=== PATIENT | female | born 1970 | race Caucasian/White ===

== ENCOUNTER 2023-10-21 11:01 | Outpatient (OUT) | payer BC, SELFPAY ==
--- NOTE | 2023-10-21 | US_ITS ---
[facility] [place] [id number] Patient Name: CLEMENCIA BROWN MRN: [id number] date: 1970 Sex: F Assigned Patient Location: [facility] Current Patient Location: [facility] Accession/Order Number: [id number] Exam Date: 10/21/2023 11:29 Report Date: 10/21/2023 12:28 At the request of: RADHA THORNTON Procedure: US pelvis transvaginal EXAMINATION: US pelvis transvaginal HISTORY: PCOS, IRREGULAR PERIODS, FAMILY HISTORY OF OVARIAN CANCER COMPARISON: No relevant comparison available. FINDINGS: The uterus is prominent in size, lobular in contour and heterogeneous in echotexture measuring 12.3 x 5.8 x 7.4 cm. Anteverted, anteflexed The endometrium measures 1.2 cm. There is a small amount of fluid in the lower uterine segment/endocervical canal which is dilated up to 4 mm The right ovary measures 2.9 x 2.1 x 2.7 cm. 2 cystic areas with low-level echoes measuring up to 1.5 cm. The left ovary measures 2.9 x 2.3 x 3.1 cm. Cystic area measuring 1.5 cm with low-level echoes. US/US pelvis transvaginal IMPRESSION: Bilateral ovarian cystic lesions measuring up to 1.5 cm. Complex cysts are favored Enlarged heterogeneous uterus with no focal masses. Electronically authenticated by: CORAZON ROUSSEAU Date: 10/21/2023 12:28
--- NOTE | 2023-10-21 11:00 | US_ITS ---
[facility] [place] [id number] Patient Name: CLEMENCIA BROWN MRN: [id number] date: 1970 Sex: F Assigned Patient Location: [facility] Current Patient Location: [facility] Accession/Order Number: [id number] Exam Date: 10/21/2023 11:29 Report Date: 10/21/2023 12:28 At the request of: RADHA THORNTON Procedure: US pelvis w/ transvaginal EXAMINATION: US pelvis transvaginal HISTORY: PCOS, IRREGULAR PERIODS, FAMILY HISTORY OF OVARIAN CANCER COMPARISON: No relevant comparison available. FINDINGS: The uterus is prominent in size, lobular in contour and heterogeneous in echotexture measuring 12.3 x 5.8 x 7.4 cm. Anteverted, anteflexed The endometrium measures 1.2 cm. There is a small amount of fluid in the lower uterine segment/endocervical canal which is dilated up to 4 mm The right ovary measures 2.9 x 2.1 x 2.7 cm. 2 cystic areas with low-level echoes measuring up to 1.5 cm. The left ovary measures 2.9 x 2.3 x 3.1 cm. Cystic area measuring 1.5 cm with low-level echoes. US/US pelvis w/ transvaginal IMPRESSION: Bilateral ovarian cystic lesions measuring up to 1.5 cm. Complex cysts are favored Enlarged heterogeneous uterus with no focal masses. Electronically authenticated by: CORAZON ROUSSEAU Date: 10/21/2023 12:28
== END 2023-10-21 11:02 | disposition home or self-care (01) ==
LOC: NOMS 11:28
PROVIDERS: PCP Family Medicine; Visit Provider Obstetrics & Gynecology
DX: E28.2 Polycystic ovarian syndrome (principal); N92.6 Irregular menstruation, unspecified; Z80.41 Family history of malignant neoplasm of ovary
CPT/HCPCS: 76830; 76856

== ENCOUNTER 2023-12-24 07:58 | Outpatient (OUT) | payer BC, SELFPAY ==
--- NOTE | 2023-12-24 08:00 | ECG_ITS ---
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
== END 2023-12-24 07:59 | disposition home or self-care (01) ==
LOC: PST 07:59
PROVIDERS: PCP Family Medicine; Visit Provider Obstetrics & Gynecology
DX: Z01.810 Encounter for preprocedural cardiovascular examination (principal); N92.6 Irregular menstruation, unspecified; N85.2 Hypertrophy of uterus; R10.2 Pelvic and perineal pain
CPT/HCPCS: 93005

== ENCOUNTER 2023-12-27 07:15 | Day surgery (SDC) | payer BC, SELFPAY ==
[2023-12-24 08:39] VITALS: BP 106/68; PULSE 55; TEMP 36.3; O2SAT 99; BMI 22.4
[2023-12-27] VITALS (10 sets, daily range): BP systolic 93–116; BP diastolic 57–81; PULSE 52–69; TEMP 36.3–36.4; O2SAT 96–100; BMI 22.4
--- OUTSIDE RECORDS SUMMARY | 2023-12-27 07:18 | XMS_ITS | CCD ---
Author Organization [facility] Care Team Providers Care Appointment Coordinator Name Role Phone DO Salas Page Primary Care Provider DO Colin Isidro Attending Provider DO Salas Page Primary Care Provider DO Corby Jauregui Attending Provider [phone] RADHA THORNTON Attending Unavailable RADHA THORNTON Attending Unavailable CORBY JAUREGUI Attending Unavailable ALEXANDRE VALDIVIA Attending Unavailable ALEXANDRE VALDIVIA Attending Unavailable Corby Jauregui Admitting Unavailable Corby Jauregui Attending Unavailable Salas Page Primary Care Unavailable Alexandre Valdivia Attending Unavailable Salas Page Primary Care Unavailable Alexandre Valdivia Admitting Unavailable Colin Isidro Admitting Unavailable Colin Isidro Attending Unavailable Salas Page Primary Care Unavailable Allergies Allergy Classification Reported Allergen(s) Allergy Type Date of Onset Reaction(s) Facility (2 sources) Penicillins; Translations: [Penicillins] Allergy to substance 06-11-2018 [facility] Problems Problem Classification Problem Date Documented Da te Episodic/Chronic Abdominal pain (2 sources) Left upper quadrant pain; Translations: [Left upper quadrant pain] 06-12-2018 Episodic Nonmalignant breast conditions (2 sources) Unspecified lump in the right breast, lower outer quadrant; Translations: [Unspecified lump in the right breast, unspecified quadrant] Onset: 12-12-2023 Episodic Other screening for suspected conditions (not mental disorders or infectious disease) (2 sources) Computed tomography result abnormal; Translations: [Abnormal findings on diagnostic imaging of other specified body structures] 06-12-2018 Chronic Unclassified (1 source) Encounter for screening mammogram for malignant neoplasm of breast; Translations: [Encounter for screening mammogram for malignant neoplasm of breast] Onset: 12-28-2022 Results Test Name Value Interpretation Reference Range Aleta Mireles 12-17-2023 L Specimen: [id number] Received: 12/17/23 Status: CATE Garcia Num: [id number] Spec Type: Surgical Subm Dr: Stephen Shelton Jr, DO Tissues: A BREAST CORE NO CALCS (RT BREAST TISSUE) Procedures: HE/4, Gross/Micro L4 Age/ Patient Sex Location Account Attending Physician Ayana Brown 53/F WIUL [id number] Alexandre Valdivia DO SPEC NUM: [id number] RECD: 12/17/23 STATUS: CATE GARCIA NUM: [id number] MICHAEL: 12/17/[address]: Stephen Shelton Jr, DO ENTERED: 12/17/23 [facility] DR: Alexandre Valdivia DO SPEC TYPE: Surgical DEPT: S ORDERED: HE/4, Gross/Micro L4 ORDERED: HE/4, Gross/Micro L4 Pathological Diagnosis Right breast mass at 6?7:00 (4 cm from nipple), ultrasound?guided core biopsy: ? 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 ? No in situ or invasive carcinoma. Note: The tumor measures at least 17 mm in maximal linear extent. There is a mixture of intracanalicular and pericanalicular architectural patterns. In some areas there is slight accentuation of stromal cellularity adjacent to hyperplastic ducts. Significant stromal cell atypia, mitotic activity or stromal overgrowth are not identified. Foci of atypical ductal hyperplasia or in situ lobular neoplasia are not identified. Possibilities include both a fibroadenoma and benign benign phyllodes tumor. Gross Description Received in formalin, labeled with the patient's name, date of and right breast 6?7:00 4 cm FN are 6 fibrofatty tissue cores ranging from 1.7 cm to 1.3 cm in length by 0.1 cm in diameter, entirely submitted in A1?A2. Time of collection: 12/17/2023 at 1120 Time in formalin: 12/17/2023 at 1125 Time at gross: 12/17/2023 at 1441 Clinical history: Right breast lesion ---- Specimen: [id number] Received: 12/17/23 Status: CATE Garcia Num: [id number] Spec Type: Surgical Subm Dr: Stephen Shelton Jr, DO Tissues: A BREAST CORE NO CALCS (RT BREAST TISSUE) Procedures: Nneka/Baylee L4 ---- Patient: Ayana Brown [id number] (Continued) ---- Specimen: [id number] Received: 12/17/23 (Continued) Signed (signature on file) Rickie Watson MD 12/18/23 1329 ---- Specimen: Received: 12/17/23 Status: CATE Garcia Num: [id number] Spec Type: Surgical Subm Dr: Stephen Shelton Jr, DO Tissues: A BREAST CORE NO CALCS (RT BREAST TISSUE) Procedures: /, Gross/Micro L4 ---- Patient: Ayana Brown [id number] (Continued) ---- Specimen: Received: 12/17/23 (Continued) CPT Codes 17369 ---- ---- Specimen: [id number] Received: 12/17/23 Status: CATE Garcia Num: [id number] Spec Type: Surgical Subm Dr: Stephen Shelton Jr, DO Tissues: A BREAST CORE NO CALCS (RT BREAST TISSUE) Procedures: HE/Marixa, Gross/Micro L4 ---- Patient: Ayana Brown [id number] (Continued) ---- Signed (signature on file) Rickie Watson MD 12/18/23 1329 Normal [facility] US breast ndl core biopsy RT on 12-17-2023 breast ndl core biopsy RT [facility] [address] Mammography Report Signed with Ramy Patient: Ayana Brown MR#: [id number] [id number] : 1970 Acct:[id number] Age/Sex: 53 / F ADM Date: 12/17/23 Loc: 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 Possibilities include fibroadenoma and phyllodes tumor. Negative for in situ or invasive carcinoma. Findings are benign and concordant with imaging. Surgical excision should be contemplated. If no intervention is performed, diagnostic right breast mammogram and ultrasound in 6 months is recommended. Impression dictated by: Stephen Shelton Jr., D.O.12/19/2023 9:31 AM Dictation Location: [place] [address] Addendum Dictated By: Stephen Shelton Jr, DO Addendum Signed By: 12/19/23930 Addendum Cosigned By: DD/ /12/927 TD/TT: 12/19/2310/12/930 ULTRASOUND GUIDED VACUUM-ASSISTED HOLOGIC ATEC SYSTEM CORE BIOPSIES OF THE RIGHT BREAST: CLINICAL DATA: Mass 6:30 position right breast PROCEDURE: The risks, benefits and alternatives to an ultrasound guided vacuum-assisted Hologic ATEC system core biopsy procedure were discussed with the patient and written informed consent was obtained. Ultrasonographic survey of the 6:30 position of the right breast was performed by pharmacy technologist . The patient's overlying skin was anesthetized with 1% lidocaine. The deeper soft tissues up to and around the mass were anesthetized with lidocaine mixed with epinephrine. Following this, multiple core biopsies of the right breast mass were performed using a 12-gauge Twirl TV vacuum-assisted core biopsy needle under ultrasound guidance. Multiple core biopsy specimens were obtained. A metallic post biopsy marker was then placed. Post procedure mammograms were performed. The patient tolerated the procedure well without immediate postprocedural complication. POSTPROCEDURE MAMMOGRAMS: Craniocaudal and true lateral views of the right breast were performed using low dose digital technique. The postbiopsy marker is seen at the biopsy site without evidence of migration. MM/MM post biopsy RT w/CAD IMPRESSION: STATUS POST ULTRASOUND GUIDED VACUUM-ASSISTED CORE BIOPSIES OF THE RIGHT BREAST. RESULT CODE: NL Impression dictated by: Stephen Shelton Jr., D.O.12/17/2023 12:52 PM Dictation Location: [address] By: GINETTE 12/17/23 1252 Dictated By: Stephen Shelton Jr, DO 12/17/23 1152 Signed By: 12/17/23 1252 Normal [facility] MM diagnostic mammo BI w/CAD on 12-12-2023 MM diagnostic mammo BI w/CAD [facility] [place] [address] [place] [address] Ultrasound Report Signed Patient: Ayana Brown MR#: [id number] [id number] : 1970 Acct:[id number] Age/Sex: 53 / F ADM Date: 12/12/23 Loc: [place] Room: Type: [facility] Attending Dr: Corby Jauregui DO Ordering Provider: Corby Jauregui DO Date of Service: 12/12/23 MM/MM diagnostic mammo BI w/CAD: N63.10 ([id number]) US/US breast RT limited: N63.10 Copies to: Corby Jauregui DO BILATERAL Screening Full Field digital mammogram with 3-D imaging. Full field digital CC and MLO imaging performed. CAD utilized. COMPARISON: 12/28/2022 HISTORY: Annual screening BREAST COMPOSITION: Scattered fibroglandular densities of the breast parenchyma identified BREAST CALCIFICATIONS: Benign calcifications present. VASCULAR CALCIFICATIONS: None ARCHITECTURAL DISTORTION: None BREAST NODULE: Developing right oval 2 cm right breast nodule in region of palpable abnormality. This is in a posterior inferior portion. AXILLARY LYMPH NODES: Normal POSTSURGICAL CHANGES: None Targeted right breast ultrasound region of lump scanned demonstrating 18 x 10 x 21 mm oval macrolobulated homogeneous hypoechoic solid nodule. Small right axillary lymph nodes identified. US/US breast RT limited IMPRESSION: Developing solid right breast nodule. Ultrasound-guided biopsy recommended. RESULT CODE: 4 Suspicious Abnormality - Biopsy Considered DENSITY CODE: 2 (approximately 25-50% glandular) FOLLOW UP: BIO THE FALSE-NEGATIVE RATE OF MAMMOGRAPHY IS APPROXIMATELY 10%. IMAGING OF A PALPABLE ABNORMALITY MUST BE BASED ON CLINICAL GROUNDS. PATIENT WAS ENTERED INTO A REMINDER SYSTEM WITH A TARGET DUE DATE FOR THE NEXT MAMMOGRAM. Impression dictated by: José Luis Mares M.D.12/12/2023 1:25 PM Dictation Location: [facility] Tech: Kristan Lucio Transcribed By: GINETTE 12/12/23 1325 Dictated By: José Luis Mares DO 12/12/23 1322 Signed By: 12/12/23 1325 Normal [facility] MM screening mammo BI w/CADo n 12-28-2022 MM screening mammo BI w/CAD [facility] [place] [address] [place] [address] Mammography Report Signed Patient: Ayana Brown MR#: [id number] [id number] : 1970 Acct:[id number] Age/Sex: 52 / F ADM Date: 12/28/22 Loc: [place] Room: Type: [facility] Attending Dr: Colin Isidro DO Copies to: DO Colin Garland DO Ordering Provider: Colin Isidro DO Date of Service: 12/28/22 MM/MM screening mammo BI w/CAD: screening;Encounter for screening mammogram for malignant ne CLINICAL DATA: Screening for malignancy. SCREENING MAMMOGRAM - FULL FIELD DIGITAL WITH TOMOSYNTHESIS AND CAD COMPARISON:Mammograms dating back to 2019 Tomosynthesis craniocaudal and mediolateral oblique views of both breasts were obtained using low- dose digital technique. This examination was reviewed with the aid of CAD. The breast parenchyma is heterogeneously dense. There are no dominant masses, typically malignant calcifications or architectural distortion. There has been no significant interval change. MM/MM screening mammo BI w/CAD IMPRESSION: NO MAMMOGRAPHIC EVIDENCE OF MALIGNANCY. ROUTINE FOLLOW-UP IS RECOMMENDED IN ONE YEAR. RESULT CODE: 1 Negative DENSITY CODE: 3 (approximately 51-75% glandular) FOLLOW UP: 1YR The false-negative rate of mammography is approximately 10-percent. Management of a palpable abnormality must be based on clinical grounds. Patient was entered into a reminder system with a target due date for the next mammogram. Impression dictated by: Stephen Shelton Jr., D.O.12/28/2022 2:02 PM Dictation Location: [facility] Transcribed By: GINETTE 12/28/22 140 Dictated By: Stephen Shelton Jr, DO 12/28/22 1401 Signed By: 12/28/22 140 Normal [facility] Encounters Encounter Date Encounter Type Care Provider Facility Start: 12-20-2023 End: 12-20-2023 ambulatory ALEXANDRE H ITZKOWITZ Not Available Start: 12-17-2023 End: 12-18-2023 ambulatory Alexandre Itzkowitz Facility:[facility] Start: 12-16-2023 End: 12-16-2023 ambulatory ALEXANDRE H ITZKOWITZ Not Available Start: 12-12-2023 End: 12-12-2023 ambulatory Corby Visci Facility:[facility] Start: 12-12-2023 End: 12-12-2023 ambulatory DO Salas Bunting Work Phone: [facility] Work Phone: Start: 12-12-2023 End: 12-12-2023 Patient encounter procedure DO Salas Bunting Work Phone: [facility] Work Phone: Start: 12-09-2023 End: 12-09-2023 ambulatory CORBY A VISCI Not Available Start: 12-04-2023 End: 12-04-2023 ambulatory RADHA HILLARY Not Available Start: 10-10-2023 End: 10-10-2023 ambulatory RADHA HILLARY Not Available Start: 12-28-2022 End: 12-28-2022 ambulatory Colin Isidro Facility:[facility] Start: 12-28-2022 End: 12-28-2022 ambulatory DO Salas Bunting Work Phone: [facility] Work Phone: Start: 12-28-2022 End: 12-28-2022 Patient encounter procedure DO Salas Bunting Work Phone: [facility] Work Phone: Procedures Date Procedure Procedure Detail Performing Clinician Start: 12-12-2023 Ultrasonography of r ight breast DO Salas Bunting Work Phone: Start: 12-12-2023 Bilateral mammography D O Salas Bunting Work Phone: Start: 12-28-2022 Screening mammograph y of bilateral breasts DO Salas Page Work Phone: Payers Date Payer Category Payer Unknown [id number] 2022 Self-pay [id number] 2022 Unknown [id number] 1970 Unknown [id number] 2.16.84 [id number] 1970 Unknown [id number] 2.16.84 [id number] 1970 Unknown [id number] 2.16.84 [id number] 1970 Unknown [id number] 2.16.84 [id number] 1970 Unknown [id number] 2.16.84 [id number] Unknown [id number] 2.16.8 [id number] Unknown [id number] 2.16.8 [id number] Unknown [id number] 2.16.8 [id number] Social History Date Type Detail [facility] Work Phone: Start: 1970 Sex Assigned At Female F [facility] Evaluation note Note Date & Type Note Facility Evaluation note No assessment information availa ble [facility] Work Phone: Chief Complaint and Reason for Visit Chief Complaint Z12.31 Chief Complaint n63.10 Advance Directives No Advanced Directives Records Found Advance Directive Response Recorded Date/ Time Advance Directives No November 25 11:58am Summary Purpose Family History No Family History Records FoundNo Family History Records Found Additional Source Comments Care Teams (unrecognized sec tion and content) Team Status: Active Member Role Status Dates Salas Camilo , DO Primary Care Provider Active Team Status: Inactive Member Role Status Dates Salas Codeyting , DO Primary Care Provider Active Colin Isidro , DO Attending Provider Active Team Status: Inactive Member Role Status Dates Salas Codey , DO Primary Care Provider Active Start: December 12, 2023 End: December 12, 2023 Corby Jauregui , DO Attending Provider Active Sta rt: December 12, 2023 End: December 12, 2023 Goals (unrecognized section and content) Goals may be documented in a n alternate sectionGoals may be documented in an alternate section INFORMATION SOURCE (unrecogn ized section and content) DATE CREATED AUTHOR 12/21/2023 [facility] DATE CREATED AUTHOR '[place] ORGANIZ ATION 12/23/2023 [facility] FOR RECORDS PERTAINING TO PATIENTS WHO ARE OR HAVE BEEN ENROLLED IN A CHEMICAL DEPENDENCY/SUBSTANCEABUSE PROGRAM, SOME INFORMATION MAY BE OMITTED. This clinical summary was aggregated from multiple sources. Caution should be exercised in using it in the provision of clinical care. This summary normalizes information from multiple sources, and as a consequence, information in this document may materially change the coding, format and clinical context of patient data. In addition, data may be omitted in some cases. CLINICAL DECISIONS SHOULD BE BASED ON THE PRIMARY CLINICAL RECORDS. [facility] [employer] [facility]. provides no warranty or guarantee of the accuracy or completeness of information in this document.
[2023-12-27 07:27] LABS: Basophils Percent Auto 0.4 % (0.2-2.0); Eosinophils Absolute Auto 0.1 10^3/uL (0.0-0.7); Eosinophils Percent Auto 2.7 % (0.9-7.0); Hematocrit 33.3 % (36.0-48.0); Hemoglobin 10.2 g/dL (12.0-16.0); Lymphocytes Absolute Auto 1.2 10^3/uL (1.2-3.8); Lymphocytes Percent Auto 24.8 % (20.5-60.0); Mean Corpuscular HGB Conc 30.6 g/dL (29.9-35.2); Mean Corpuscular Hemoglobin 25.6 pg (26.7-34.0); Mean Corpuscular Volume 83.5 fL (81.0-99.0); Mean Platelet Volume 11.1 fL (9.5-13.5); Monocytes Absolute Auto 0.4 10^3/uL (0.3-0.8); Monocytes Percent Auto 7.4 % (1.7-12.0); Neutrophils Absolute Auto 3.1 10^3/uL (1.4-6.5); Neutrophils Percent Auto 64.7 % (43.0-75.0); Platelet Count 222 10^3/uL (150-450); Red Blood Count 3.99 10^6/uL (4.20-5.40); Red Cell Distribution Width 15.7 % (11.0-15.0); White Blood Count 4.8 10^3/uL (4.0-11.0)
[2023-12-27] MEDS: LACTATED RINGER'S SOLUTION 1,000 ML 50 ML IV ×2 (07:50→10:54)
[2023-12-27 08:41] LABS: HCG Quantitative <1 mIU/mL
--- NOTE | 2023-12-27 10:56 | P.ON_ITS ---
Brief Operative Note Date of procedure: 12/27/23 Pre-op diagnosis general: thickend lining, aub, desires permanent sterilization Post-op diagnosis: same as pre-op Procedure: NAME OF PROCEDURE: robotic assisted Laparoscopic bilateral salpingectomy, with d&c hysteroscopy with myosure findings, enlarged adenomyotic appearing uterus, intramural uterine fibroid. PROCEDURE: The patient was taken back to the OR where she was prepped and draped in the normal sterile fashion after being placed in the dorsal lithotomy position, after being placed under general anesthesia without difficulty. a weighted speculum was then placed into the vagina. Pap and endometrial bx were performed without difficultyThe anterior lip was grasped with a single tooth tenaculum. The patient was then sounded to approximatley 9cm. The patient was gently sound ed using Hegar dilators and the hysteroscope was passed through the cervix into the uterus where both ostia were seen. No gross of malignancy. evidence of intramural fibroid seen myosure apparatus was engaged and the fibroid was removed. All instruments were removed from the vagina. A wet sponge stick was placed into the patient's vagina. Attention was then turned to the patient's abdomen, where a scalpel was used to make a small infraumbilical incision. The S retractors were then used to dissect the underlying layers until the fascia could be seen. The fascia was then grasped with Mariana clamps and tented up. A knife was then used to make a small incision to the fascia. The muscle was identified, at that time two sutures of #0 Vicryl on a GI needlewas then used and placed through the fascia. The peritoneum was then identified and entered bluntly. The 10-4 Kaykay was then placed into the patient's abdomen. This was confirmed with direct visualization of the bowel, using the laparoscope. The patient's abdomen was then insufflated using approximately 4 liters of CO2 gas. Survey of the patient's abdomen demonstrated normal appearing ovaries, uterus and tubes. A second and third lateral robotic ports, which was 8mm in size, was then placed laterally after incision was made in the skin under direct visualization. the robotic arms were engaged. The patient's tube on the patient's right side was identified. The tube was then tented up using a grasper. The ligasure was used to transect and coagulate the mesosalpingx from the fimbriated end to the insertion at the uterus, the tube was amputated and removed in its entirety.? Excellent hemostasis was noted. ?This was performed on the contralateral sideas well. The lateral ports were then moved under direct visualization with excellent hemostasis. The abdomen was deinsufflated. All instruments were removed from the patient's abdomen. The fascia was closed using the #0 Vicryl on GI needle. The skin was closed using 4- 0 Vicryl subcuticularly. All instruments were removed from the patient's vagina as well. The patient was taken out of the dorsal lithotomy position and placed in the supine position and taken to recovery in stable condition. Sponge, lap and needle counts were correct x2. ??? Anesthesia: GETA Surgeon: Michael Mohamud Estimated blood loss (mL): 5 Pathology: other (endometrial currettings, uterine fibroid) Condition: stable Disposition: PACU Urinary Catheter Management Urinary Catheter Management Urethral: Cath placed during this visit: no
[2023-12-27] MEDS: PROMETHAZINE HCL 25 MG TABLET PO (13:16)
--- NOTE | 2023-12-27 13:18 | PC.NURSE ---
1316: pt reports nausea after ambulating to bathroom,pt voids without difficulty. PRN PO Phenergan given at this time.
== END 2023-12-27 13:45 | disposition home or self-care (01) ==
PROVIDERS: PCP Family Medicine; Visit Provider Obstetrics & Gynecology
PROC: (CPT 840; principal; 2023-12-27 08:35)
PROC: (CPT 840; 2023-12-27 08:35)
DX: Z30.2 Encounter for sterilization (principal); N92.6 Irregular menstruation, unspecified; R10.2 Pelvic and perineal pain; N85.2 Hypertrophy of uterus; D25.1 Intramural leiomyoma of uterus; N93.0 Postcoital and contact bleeding; E28.2 Polycystic ovarian syndrome
CPT/HCPCS: 58558; 58661; 36415; 84702; 85025; 88302; 88305; 99999; J1094; J1170

== ENCOUNTER 2025-01-09 10:01 | Outpatient (OUT) | payer BC, SELFPAY ==
--- OUTSIDE RECORDS SUMMARY | 2024-12-11 11:00 | XMS_ITS ---
Author Name Auto Generated Organization OHIP Care Team Providers Care Suspect Artist Name Role Phone ALEXANDRE VALDIVIA Attending Unavailable ALEXANDRE VALDIVIA Attending Unavailable Alexandre Valdivia Attending Unavailable Alexandre Valdivia Admitting Unavailable Bunting, Salas Primary Care Unavailable Alexandre Valdivia Attending Unavailable Alexandre Valdivia Admitting Unavailable Bunting, Salas Primary Care Unavailable PROBLEMS DATE TYPE CONDITION / CODE ATTENDING STATUS [facility] 12/01/2024 Unknown Benign neoplasm of right breast / D24.1(ICD-10) Alexandre Valdivia [facility] 11/17/2024 Unknown Encounter for preprocedural cardiovascular examination / Z01.810(ICD-10) Alexandre Valdivia [facility] PROCEDURES No Procedure Records Found RESULTS L Observed: 12/01/2024 8:40 AM Status: F Source: [facility] ----- ------- Specimen: [id number] Received: 12/01/24 Status: CATE Wilson Num: [id number] Spec Type: Surgical Subm Dr: Alexandre Valdivia DO Tissues: A Breast Lumpectmy/Mass - Requiring Micros Eval of Margins (R BREAST MASS) Procedures: /6, Gross/Baylee L5 ----- ------- Age/ Patient Sex Location Account Attending Physician ----- ------- Ayana Brown/F MA [id number] Alexandre Valdivia, DO ----- ------- SPEC NUM: [id number] RECD: 12/01/24 STATUS: CATE WILSON NUM: [id number] MICHAEL: 12/01/[address]: Alexandre Valdivia DO ENTERED: 12/01/[address] [facility] DR: SPEC TYPE: Surgical DEPT: S ENTERED BY: [id number] RECV BY: [id number] ORDERED: HE/6, Gross/Micro L5 ORDERED: , Gross/Micro L5 Pathological Diagnosis Right breast mass, lumpectomy: - 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 (2.5 cm) - No evidence of stromal overgrowth or stromal cell atypia - Occasional columnar cell hyperplasia, occasional small adenosis, and only occasional minute foci of mild to moderate ductal epithelial hyperplasia of the usual type (UDH) - Rare microcalcification in the surrounding nonadenomatous breast tissue - No evidence of malignancy or any atypical epithelial hyperplasia identified - Adequately excised for assessment with focally very close but negative inked margins in all sections Clinical Information Right breast mass; fibroid adenoma ----- ------- Specimen: [id number] Received: 12/01/24 Status: CATE aKtie Num: [id number] Spec Type: Surgical Subm Dr: Alexandre Valdivia DO Tissues: A Breast Lumpectmy/Mass - Requiring Micros Eval of Margins (R BREAST MASS) Procedures: ASHLIE/6, Gross/Micro L5 ----- ------- Patient: Ayana Brown [id number] (Continued) ----- ------- Specimen: [id number] Received: 12/01/24 (Continued) Signed (signature on file) Vince Tan MD 12/02/24 1353 ----- ------- Specimen: [id number] Received: 12/01/24 Status: CATE Katie Num: [id number] Spec Type: Surgical Subm Dr: Alexandre Valdivia DO Tissues: A Breast Lumpectmy/Mass - Requiring Micros Eval of Margins (R BREAST MASS) Procedures: Nneka AGUIRRE/Baylee L5 ----- ------- Patient: Ayana Brown [id number] (Continued) ----- ------- Specimen: [id number] Received: 12/01/24 (Continued) Gross Description Part A is received in formalin labeled with the patients name, date of , and R breast mass is a mathias-white, encapsulated, ovoid rubbery nodule, 2.5 x 2.2 x 1.8 cm, resected with fibrofatty tissue, up to 0.3 cm in thickness. The specimen is inked black. The capsular surface is mathias-pink, membranous, smooth, glistening, and intact. Serial sections reveal mathias-white, glistening and uniform cut surfaces that are situated adjacent (less than 0.1 cm) from the freely mobile capsular surface. Within the nodule is an Infinity clip. The specimen is entirely, sequentially submitted in A1?A6 (to include Infinity clip site in A2). Fixation Time: Time specimen extracted: 839 Time specimen sliced in formalin: 908 Cold ischemic time: 29 minutes Total fixation time: 8 hours and 30 minutes (6, ns, A) Microscopic Description Microscopic examination is performed CPT Codes 94064 ----- ------- ----- ------- Specimen: [id number] Received: 12/01/24 Status: CATE Wilson Num: [id number] Spec Type: Surgical Subm Dr: Alexandre Valdivia, DO Tissues: A Breast Lumpectmy/Mass - Requiring Micros Eval of Margins (R BREAST MASS) Procedures: HE/6, Gross/Micro L5 ----- ------- Patient: Ayana Brown [id number] (Continued) ----- ------- Signed (signature on file) Vince Tan MD 12/02/24 1353 HCG,URINE Collected: 12/01/2024 6:35 AM Status: F Source: [facility] TYPE CODE TESTS RESULT OUT OF RANGE REFERENCE UNITS LAB UHCGQ HCG Qualitative,U rine Negative Result Comment: PERFORMED BY : [place] [address] PATHOLOGIST ACCOUNT DEVELOPMENT SPECIALIST BRAVO ADAMS M.D. Performed By: #### UHCG #### [address] ECG 12 LEAD ECG Observed: 11/17/2024 11:27 AM Status: COMPLETED Source: [facility] ENTER [facility] [address] [place] [address] [place] [address] Electrocardiograph Report Signed Patient: Ayana Brown MR#: [id number] : 1970 Acct:[id number] Age/Sex: 54 / F ADM Date: 11/17/24 Loc: PS Room: Type: [facility] Attending Dr: Alexandre Valdivia DO Ordering Provider: Alexandre Valdivia DO Date of Service: 11/17/2409/12/1108 ECG/ECG 12 lead ECG: pst Copies to: Test Reason : Blood Pressure : */* mmHG Vent. Rate : 62 BPM Atrial Rate : 62 BPM P-R Int : 150 ms QRS Dur : 88 ms QT Int : 430 ms P-R-T Axes : 79 70 52 degrees QTcB Int : 436 ms Normal sinus rhythm Normal ECG No previous ECGs available Confirmed by Bryan Boggs ([id number]) on 11/18/2024 6:34:15 AM Referred By: Electronically Signed By: Bryan Boggs Transcribed By: MUS Signed By Bryan Boggs MD 11/18/24 0634 ALLERGIES DATE TYPE / CODE NAME / CODE REACTION SEVERITY SOURCE 12/01/2024 Drug Allergy/[id number] (SNOMED CT) Penicillins/[id number] 47793(RXNORM) Hives Unknown [facility] ENCOUNTERS ADMIT/DISCHARGE ACCOUNT NUMBER ADMITTING ENCOUNTER CLASS LOCATION SOURCE 12/11/2024/12/12/19 [id number] Ambulatory Building:[facility] EPIC 12/01/2024/12/02/19 [id number] 11/17/2024/11/18/19 [id number] [facility] 09/17/2024/09/17/19 [id number] Ambulatory Building:[facility] EPIC PAYERS ENCOUNTER GUARANTOR PAYER SUBSCRIBER SOURCE 12/11/2024 AYANA BURR: [id number] [place] [address]Tjp: (HP) (WP) Primary Insurance:[employer] cy Number: [id number] bella Date:2023-01-17 MIGUELITO HARVEYB: [id number] [place] [address] [facility] 12/01/2024 Ayana [address] [place] [address]Ebq: () Primary Insurance:[place] /BSPolicy Number: [id number] bella Date:2024-09-17 Miguelito HarveyB: [id number] [place] [address]Esg: () [facility] 12/01/2024 Secondary Insurance:Self PayPolicy Number: Effective Date:2024-09-17 NOT GIVENUNK [facility] 11/17/2024 Ayana [address]celler[address] [place] [address]Kju: () Primary Insurance:[place] BC/BSPolicy Number: [id number] bella Date:2024-09-17 Miguelito Burr: [id number] [place] [address]Ult: () [facility] 11/17/2024 Secondary Insurance:Self PayPolicy Number: Effective Date:2024-09-17 NOT GIVENUNK [facility] 09/17/2024 AYANA BURR: [id number] [place] [address]Qmr: (HP) () Primary Insurance:BCBSPoli cy Number: [id number] bella Date:2023-01-17 MIGUELITO HARVEYB: [id number] [place] [address] [facility] EPIC
--- NOTE | 2025-01-09 10:03 | US_ITS ---
The [address] [address] Patient Name: CLEMENCIA BROWN MRN: [id number] date: 1970 Sex: F Assigned Patient Location: Current Patient Location: Accession/Order Number: [id number] Exam Date: 01/09/2025 12:53 Report Date: 01/09/2025 12:58 At the request of: RADHA THORNTON DO Procedure: US pelvis w/ transvaginal EXAMINATION TYPE: US pelvis w/ transvaginal Grayscale, color scale Doppler, vascular duplex analysis of the bilateral ovaries DATE OF EXAM ORDERED: 01/09/2025 10:36 AM HISTORY: Family history of ovarian cancer, follow-up COMPARISON: 10/21/2023 TECHNIQUE: Realtime Transvaginal and Transabdominal imaging was performed. Transvaginal imaging was utilized to better evaluate the ovaries and the endometrial stripe. Grayscale, color scale Doppler, vascular duplex analysis of the bilateral ovaries was performed to assess blood flow. FINDINGS: The uterus measures 11.2 x 5.4 x 7.0 cm. The uterus is normal in echogenicity. Endometrium: Normal thickness and appearance. The endometrium is 9 mm in thickness. A small amount of fluid is noted in the cervical canal. Ovaries: Multiple cystic structures are noted in the ovary. There is a thick-walled cyst measuring 1.5 x 1.3 x 1.5 cm in greatest dimension, similar to the prior exam. There is also an echogenic 5 mm structure within the left ovary. There is a dominant follicle in the left ovary measuring up to 2 cm in greatest dimension. Right Ovary measurements: 3.3 x 2.4 x 2.5 cm Left Ovary measurements: 3.4 x 2.6 x 2.5 cm No abnormal adnexal mass is seen. No free fluid in the pelvic cul-de-sac. Vascular duplex analysis of the bilateral ovaries demonstrates normal blood flow without evidence of ovarian ischemia. US/US pelvis w/ transvaginal IMPRESSION: There is a thick-walled cyst in the right ovary measuring up to 1.5 cm in greatest dimension suggesting a complex cyst. There is a tiny echogenic focus in the left ovary which is nonspecific. There are dominant follicles within the left ovary. No evidence of ovarian ischemia. Impression dictated by: Corby Dorman M.D. 01/09/2025 12:58 PM Dictation Location: [place] [address] Electronically authenticated by: [id number] Y Date: 01/09/2025 12:58
--- OUTSIDE RECORDS SUMMARY | 2025-01-09 10:03 | XMS_ITS | Encounter Summary ---
Author Organization [facility] Address [address] [place] [address] Care Team Providers Care Reconciler Name Role Phone Salas Page Primary Care Provider [phone] Encounter Details Date Type Department Care Team (Late Contact Info) Description 01/03/2024 Abstract [facility] [address] [place] [address] Danielle Amaya LPN [address] [place] [address] [place] [address] Social History Tobacco Use Types Packs/Day Years Used Date Smoking Tobacco: Never Smokeless Tobacco: Never Alcohol Use Standard Drinks/Week Comments Yes 1 (1 standard drink = 0.6 oz pur e alcohol) caffeine: 1 tea AM AUDIT-C Answer Date Recorded Q1: How often do you have a drink containing alc ohol? Monthly or less 12/09/2023 Q2: How many drinks containi ng alcohol do you have on a typical day when you are drinking? 1 or 2 12/09/2023 Q3: How often do you have si x or more drinks on one occasion? Never 12/09/2023 PHQ-2 Answer Date Recorded Patient Health Questionnaire-2 Score 0 12/09/2023 Comments No Sex and Gender Information Value Date Recorded Sex Assigned at Not on file Legal Sex Female 7:23 PM EDT Gender Identity Not on file Sexual Orientation Not on file documented as of this encounter Plan of Treatment Upcoming Encounters Date Type Department Care Team (Late st Contact Info) Description 01/18/2025 11:00 AM EDT Office Visit [facility] [address] [facility] [place] [address] Michael Mohamud DO [address] [facility] [place] [address] documented as of this encounter Visit Diagnoses Not on filedocumented in this encounter Care Teams Reconciler Relationship Specialty Start Date End Date Salas Page [address] [place] [address] PCP - General Family Medicine 10/10/23 documented as of this encounter
--- OUTSIDE RECORDS SUMMARY | 2025-01-09 10:03 | XMS_ITS | Encounter Summary ---
Author Organization [facility] Address [address] [place] [address] Care Team Providers Care Calendar Control Clerk Blood Bank Name Role Phone Salas Page Primary Care Provider [phone] Encounter Details Date Type Department Care Team (Late st Contact Info) Description 12/24/2023 Clinisync Result Encounter [facility] External Department Unsolicited Radha Mohamud, DO [address] [facility] [address] [place] [address] Social History Tobacco Use Types Packs/Day Years [...] EDT Office Visit [facility] [address] [facility] [place] [address] Radha Mohamud, DO [address] [facility] [place] [address] documented as of this encounter Procedures Procedure Name Priority Date/Time Associated Diagnosis Comments ECG 12-LEAD 12/24/2023 8:37 AM EDT documented in this encounter Results * ECG 12-LEAD (12/24/2023 8:37 AM EDT) Anatomical Region Laterality Modality Other 12/24/2023 8:37 AM EDT Narrative 12/24/2023 10:36 PM EDT [address] [address] Electrocardiograph Report Signed Patient: AYANA BROWN MR#: [id number] : 1970 Acct:[id number] Age/Sex: 53 / F ADM Date: 12/24/23 Loc: PST Attending Dr: Radha Mohamud D.O. Ordering Physician: Radha Mohamud D.O. Date of Service: 12/24/23 Procedure(s): ECG 12 lead Accession Number(s): [id number] cc: [facility] Test Date: 2023-12-24 Pat Name: AYANA BROWN Department: Room: - Gender: Female Quad Stayer: : 1970 Requested By: RADHA MOHAMUD Order Number: [id number] Reading MD: BON VAZQUEZ Measurements Intervals [place] Rate: 51 P: 85 PA: 157 QRS: 63 QRSD: 93 T: 52 QT: 429 QTc: 397 Interpretive Statements SINUS BRADYCARDIA POSSIBLE RIGHT VENTRICULAR CONDUCTION DELAY [RSR (QR) IN V1/V2] No previous ECG available for comparison Electronically Signed On 12-24-2023 22:36:29 EDT by BON VAZQUEZ Dictated By: Bon Vazquez D.O. Signed By: 12/24/236 DD/ TD/TT: Bolt Maker: Procedure Note Radiology, Radiologist, - 12/24/2023 [facility] [place] [id number] Electrocardiograph Report Signed Patient: JUAN C BROWN#: [id number] : 1970Acct:[id number] Age/Sex: 53 / FADM Date: 12/24/23 Loc: PST Attending Dr: Radha Mohamud D.O. Ordering Physician: Radha Mohamud D.O. Date of Service: 12/24/23 Procedure(s): ECG 12 lead Accession Number(s): [id number] cc: The [facility] Test Date: 2023-12-24 Pat Name: AYANA BROWN Department: Room: - Gender: Female Quad Stayer: : 1970 Requested By: RADHA MOHAMUD Order Number: [id number] Reading MD: BON VAZQUEZ Measurements Intervals [place] Rate: 51 P: 85 PA: 157 QRS: 63 QRSD: 93 T: 52 QT: 429 QTc: 397 Interpretive Statements SINUS BRADYCARDIA POSSIBLE RIGHT VENTRICULAR CONDUCTION DELAY [RSR (QR) IN V1/V2] No previous ECG available for comparison Electronically Signed On 12-24-2023 22:36:29 EDT by BON VAZQUEZ Dictated By: Bon Vazquez D.O. Signed By:12/24/23 2236 DD/ 0837 TD/TT: Bolt Maker: us Radha Mohamud DO [facility] Final Result documented in this encounter Visit Diagnoses Not on filedocumented in this encounter Care Teams Calendar Control Clerk Blood Bank Relationship Specialty Start Date End Date Salas Page [address] [place] [address] PCP - General Family Medicine 10/10/23 documented as of this encounter
--- OUTSIDE RECORDS SUMMARY | 2025-01-09 10:03 | XMS_ITS | Encounter Summary ---
Author Organization [facility] Address [address] [place] [address] Care Team Providers Care Forestry Instructor Name Role Phone Salas Page Primary Care Provider [phone] Encounter Details Date Type Department Care Team (Late st Contact Info) Description 12/19/[address] [facility] [address] [facility] [address] [place] [address] Alexandre Oliver, DO [address] [facility] [address] [place] [address] Social History Tobacco Use Types Packs/Day Years [...] EDT Office Visit [facility] B[facility] OB [address] [facility] [place] [place] [phone] Michael Mohamud DO [address] [place] [address] [place] [address] documented as of this encounter Procedures Procedure Name Priority Date/Time Associated Diagnosis Comments BI CORE NEEDLE BIOPSY RIGHT Routine 12/19/2023 11:04 AM EDT documented in this encounter Results * BI core needle biopsy right (12/19/2023 11:04 AM EDT) Anatomical Region Laterality Modality Breast Right Mammography Alexandre Oliver DO IMG BI PROCEDURES Final R esult documented in this encounter Visit Diagnoses Not on filedocumented in this encounter Care Teams Forestry Instructor Relationship Specialty Start Date End Date Salas Page [address] [place] [address] PCP - General Family Medicine 10/10/23 documented as of this encounter
--- OUTSIDE RECORDS SUMMARY | 2025-01-09 10:03 | XMS_ITS | Encounter Summary ---
Author Organization [facility] Address [address] [place] [address] Care Team Providers Care Turn Machine Operator Name Role Phone Martha Newman Primary Care Provider [phone] Encounter Details Date Type Department Care Team (Late st Contact Info) Description 10/21/2023 Clinisync Result Encounter [facility] External Department Unsolicited Radha Mohamud, [address] [place], [place] [address] Social History Tobacco Use Types Packs/Day Years Used Date Smoking Tobacco: Never Smokeless Tobacco: Never Alcohol Use Standard Drinks/Week Comments Never 0 (1 standard drink = 0.6 oz pur e alcohol) caffeine: 1 tea AM Comments Unknown Sex and Gender Information Value Date Recorded Sex Assigned at Not on file Legal Sex Female 7:23 PM EDT Gender Identity Not on file Sexual Orientation Not on file documented as of this encounter Plan of Treatment Upcoming Encounters Date Type Department Care Team (Late st Contact Info) Description 01/18/2025 11:00 AM EDT Office Visit [facility] OB [address] [place] [address] Radha Mohamud [address] [place] [address] documented as of this encounter Procedures Procedure Name Priority Date/Time Associated Diagnosis Comments US PELVIS TRANSVAGINAL 10/21/2023 12:28 PM EST documented in this encounter Results * US PELVIS TRANSVAGINAL (10/21/2023 12:28 PM EST) Anatomical Region Laterality Modality Other 10/21/2023 12:2 8 PM EST Narrative 10/21/2023 12:30 [place] [address] Ultrasound Report Signed Patient: AYNAA BROWN MR#: [id number] : 1970 Acct:[id number] Age/Sex: 53 / F ADM Date: 10/21/23 Loc: [facility] Attending Dr: Radha Mohamud D.O. Ordering Physician: Radha Mohamud D.O. Date of Service: 10/21/23 Procedure(s): US pelvis transvaginal Accession Number(s): [id number] cc: MARTHA NEWMAN ; Radha Mohamud D.O. The [place] [address] Patient Name: AYANA BROWN MRN: [id number] date: 1970 Sex: F Assigned Patient Location: [facility] Current Patient Location: [facility] Accession/Order Number: [id number] Exam Date: 10/21/2023 11:29 Report Date: 10/21/2023 12:28 At the request of: RADHA MOHAMUD Procedure: US pelvis transvaginal EXAMINATION: US pelvis transvaginal HISTORY: PCOS, IRREGULAR PERIODS, FAMILY HISTORY OF OVARIAN CANCER COMPARISON: No relevant comparison available. FINDINGS: The uterus is prominent in size, lobular in contour and heterogeneous in echotexture measuring 12.3 x 5.8 x 7.4 cm. Anteverted, anteflexed The endometrium measures 1.2 cm. There is a small amount of fluid in the lower uterine segment/endocervical canal which is dilated up to 4 mm The right ovary measures 2.9 x 2.1 x 2.7 cm. 2 cystic areas with low-level echoes measuring up to 1.5 cm. The left ovary measures 2.9 x 2.3 x 3.1 cm. Cystic area measuring 1.5 cm with low-level echoes. US/US pelvis transvaginal IMPRESSION: Bilateral ovarian cystic lesions measuring up to 1.5 cm. Complex cysts are favored Enlarged heterogeneous uterus with no focal masses. Electronically authenticated by: CORAZON ROUSSEAU Date: 10/21/2023 12:28 Dictated By: Corazon Rousseau M.D. Signed By: 10/21/23 1230 DD/ 1228 TD/TT: Doctor Of Radiology: Procedure Note Radiology, Radiologist, MD - 10/21/2023 [place] [address] Ultrasound Report Signed Patient: JUAN C BROWN#: [id number] : 1970Acct:[id number] Age/Sex: 53 / FADM Date: 10/21/23 Loc: [facility] Attending Dr: Radha Mohamud D.O. Ordering Physician: Radha Mohamud D.O. Date of Service: 10/21/23 Procedure(s): US pelvis transvaginal Accession Number(s): [id number] cc: MARTHA NEWMAN ; Radha Mohamud D.O. The [place] [id number] Patient Name: AYANA BROWN MRN: [id number] date: 1970 Sex: F Assigned Patient Location: [facility] Current Patient Location: [facility] Accession/Order Number: [id number] Exam Date: 10/21/2023 11:29 Report Date: 10/21/2023 12:28 At the request of: RADHA MOHAMUD Procedure: US pelvis transvaginal EXAMINATION: US pelvis transvaginal HISTORY: PCOS, IRREGULAR PERIODS, FAMILY HISTORY OF OVARIAN CANCER COMPARISON: No relevant comparison available. FINDINGS: The uterus is prominent in size, lobular in contour and heterogeneous in echotexture measuring 12.3 x 5.8 x 7.4 cm. Anteverted, anteflexed The endometrium measures 1.2 cm. There is a small amount of fluid in thelower uterine segment/endocervical canal which is dilated up to 4 mm The right ovary measures 2.9 x 2.1 x 2.7 cm. 2 cystic areas with low-level echoes measuring up to 1.5 cm. The left ovary measures 2.9 x 2.3 x 3.1 cm. Cystic area measuring 1.5 cmwith low-level echoes. US/US pelvis transvaginal IMPRESSION: Bilateral ovarian cystic lesions measuring up to 1.5 cm. Complex cysts are favored Enlarged heterogeneous uterus with no focal masses. Electronically authenticated by: CORAZON ROUSSEAU Date: 10/21/2023 12:28 Dictated By: Corazon Rousseau M.D. Signed By:10/21/23 1230 DD/ 1228 TD/TT: Doctor Of Radiology: us Radha Cade DO [facility] Final Result documented in this encounter Visit Diagnoses Not on filedocumented in this encounter Care Teams Turn Machine Operator Relationship Specialty Start Date End Date Martha Newman [address] [place] [address] PCP - General Family Medicine 10/10/23 documented as of this encounter
--- OUTSIDE RECORDS SUMMARY | 2025-01-09 10:03 | XMS_ITS | Encounter Summary ---
Author Organization [facility] Address [address] [place] [address] Care Team Providers Care Cytogeneticist Name Role Phone Salas Page Primary Care Provider [phone] Encounter Details Date Type Department Care Team (Late st Contact Info) Description 12/02/[address] [facility] [address] [facility] [address] [place] [address] Alexandre Oliver, DO [address] [facility] [address] [place] [address] Social History Tobacco Use Types [...] EDT Office Visit [facility] OB [address] [facility] [place] [address] Michael Mohamud DO [address] [place] [address] [place] [address] documented as of this encounter Procedures Procedure Name Priority Date/Time Associated Diagnosis Comments GENERAL PATHOLOGY Routine 12/02/2024 3:42 PM EDT documented in this encounter Results * GENERAL PATHOLOGY (12/02/2024 3:42 PM EDT) us Alexandre Oliver DO [facility] Final Res ult documented in this encounter Visit Diagnoses Not on filedocumented in this encounter Care Teams Cytogeneticist Relationship Specialty Start Date End Date Salas Page [address] [facility] [place] [address] PCP - General Family Medicine 10/10/23 documented as of this encounter
--- OUTSIDE RECORDS SUMMARY | 2025-01-09 10:03 | XMS_ITS | Clinical Summary ---
Author Organization [facility] Address [address] [place] [address] Care Team Providers Care Senior Research Project Manager Name Role Phone Salas Page Primary Care Provider [phone] Allergies Active Allergy Reactions Criticality Noted Date Comments Penicillins Hives 07/11/2004 Other Reaction(s): Unknown Medications No known medications Active Problems Problem Noted Date Diagnosed Date Hip arthritis 11/10/2024 Mass of lower inner quadrant of right breast Postcoital bleeding 10/10/2023 Family history of ovarian cancer 10/10/2023 PCOS (polycystic ovarian syndrome) 10/10/2023 Encounter to discuss procedure 10/10/2023 Irregular menstrual cycle 10/10/2023 Complex ovarian cyst 10/10/2023 Bilateral inguinal hernia 07/12/2004 Overview (11/10/2024): updated for 06/03 reg imo load Encounters Date Type Department Care Team Description 12/23/2024 Telephone [facility] [address] [place] [phone] Michael Mohamud DO 12/11/2024 11:00 AM EDT Office Visit [facility] [address] [place] [phone] Alexandre Oliver DO Mass of lower inner quadrant of right breast (Primary Dx) 12/11/2024 Travel 12/02/[address] [facility] [address] [place] [address] Alexandre Oliver DO 11/26/2024 Travel 11/17/2024 External Result Encounter [facility] External Department Unsolicited Alexandre Oliver DO from Last 3 Months Family History Medical History Relation Name Comments No Known Problems Brother No Known Problems Daughter CLL Father Ovarian cancer Mother Latesha Jimenez No Known Problems Son 1 No Known Problems Son 2 Breast cancer Neg Hx Colon cancer Neg Hx Melanoma Neg Hx Relation Name Status Comments Brother 1 Daughter Alive Father Mother Latesha Jimenez Son 1 Alive Son 2 Alive Social History Tobacco Use Types Packs/Day Years Used Date Smoking Tobacco: Never Smokeless Tobacco: Never Tobacco Cessation:Counseling Given: Not Answered Alcohol Use Standard Drinks/Week Comments Yes 1 [...] on file Sexual Orientation Not on file Last Filed Vital Signs Vital Sign Reading Time Taken Comments Blood Pressure 110/60 09/17/2024 11:04 AM EST Pulse - - Temperature - - Respiratory Rate - - Oxygen Saturation - - Inhaled Oxygen Concentration - - Weight 59.9 kg (132 lb) 09/17/2024 11:04 AM EST Height 163.8 cm (5' 4.5 ) 09/17/2024 11:04 AM ES T Body Mass Index 22.31 09/17/2024 11:04 AM EST Plan of Treatment Upcoming Encounters Date Type Department Care Team (Late st Contact Info) Description 01/18/2025 11:00 AM EDT Office Visit [facility] [address] [place] [address] [place] [address] Michael Mohamud DO [address] [place] [address] [place] [address] Procedures Procedure Name Priority Date/Time Associated Diagnosis Comments GENERAL PATHOLOGY Routine 12/02/2024 3:4 2 PM EDT ECG 12-LEAD 11/17/2024 11:27 AM EDT from Last 3 Months Results * GENERAL PATHOLOGY (12/02/2024 3:42 PM EDT) us Alexandre Oliver DO [facility] Final Res ult * ECG 12 lead (11/17/2024 11:27 AM EDT) 11/17/2024 11:2 7 AM EDT Narrative [facility] 11/18/2024 6:[address] [facility] Main [address] [address] Electrocardiograph Report Signed Patient: Ayana Potter MR#: [id number] 847 : 1970 Acct:[id number] Age/Sex: 54 / F ADM Date: 11/17/24 Loc: Room: Type: [facility] Attending Dr: Alexandre Oliver DO Ordering Provider: Alexandre Oliver DO Date of Service: 11/17/2409/12/1108 ECG/ECG 12 [...] previous ECGs available Confirmed by Bryan Boggs ([id number]) on 11/18/2024 6:34:15 AM Referred By: Electronically Signed By: Bryan Boggs Transcribed By: MUS Signed By Bryan Boggs MD 11/18/24 0634 Procedure Note Art Boggs MD - 11/18/2024 [facility] Main [address] [address] [place] [address] Electrocardiograph Report Signed Patient: Ayana Potter KATIAR#: [id number] 847 : 1970Acct:[id number] Age/Sex: 54 / FADM Date: 11/17/24 Loc: Room:Type: [facility] Attending Dr: Alexandre Oliver DO Ordering Provider: Alexandre Oliver DO Date of Service: 11/17/2409/12/1108 ECG/ECG 12 [...] previous ECGs available Confirmed by Bryan Boggs ([id number]) on 11/18/2024 6:34:15 AM Referred By: Electronically Signed By: Bryan Boggs Transcribed By: MUS Signed By Bryan Boggs MD 11/18/24 0634 us Alexandre Oliver DO ECG ORDERABLES Final Res ult [address] [address], [place] from Last 3 Months Insurance [facility] Care Teams Senior Research Project Manager Relationship Specialty Start Date End Date Salas Page [address] [place] [address] PCP - General Family Medicine 10/10/23
--- OUTSIDE RECORDS SUMMARY | 2025-01-09 10:03 | XMS_ITS | Encounter Summary ---
Author Organization [facility] Address [address] [place] [address] Care Team Providers Care Telemetry Nurse Name Role Phone Salas Page Primary Care Provider [phone] Encounter Details Date Type Department Care Team (Late st Contact Info) Description 12/17/2023 External Result Encounter [facility] External Department Unsolicited Alexandre Oliver, DO [address] [address] Social History Tobacco Use Types Packs/Day Years [...] EDT Office Visit [facility] [address] [facility] [place] [phone] Michael Mohamud, DO [address] [facility] [place] [address] documented as of this encounter Procedures Procedure Name Priority Date/Time Associated Diagnosis Comments BI US GUIDED BREAST LOCALIZATION AND BIOPSY RIGHT 12/17/2023 11:52 AM EDT documented in this encounter Results * Right US-guided breast localization and biopsy (12/17/2023 11:52 AM EDT) Anatomical Region Laterality Modality Breast Right Ultrasound 12/17/2023 11:5 2 AM EDT Impressions 12/17/2023 12:54 PM EDT STATUS POST ULTRASOUND GUIDED VACUUM-ASSISTED CORE BIOPSIES OF THE RIGHT BREAST. RESULT CODE: NL Impression dictated by: Stephen Shelton Jr., D.OYash12/17/2023 12:52 PM Dictation Location: [facility] Transcribed By: PWS 12/17/23 1252 Dictated By: Stephen Shelton Jr, DO 12/17/23 1152 Signed By: <Electronically signed by Stephen Shelton Jr, DO in OV> 12/17/23 1252 Narrative 12/17/2023 12:54 PM EDT [facility] Main [address] [address] Mammography Report Signed with Addenda Patient: Ayana Potter MR#: [id number] 847 : 1970 Acct:[id number] Age/Sex: 53 / F ADM Date: 12/17/23 Loc: [facility] Room: Type: [facility] Attending Dr: Alexandre Oliver DO Copies to: DO Alexandre Garland DO Ordering Provider: Alexandre Oliver DO Date of Service: 12/17/23 US/US breast ndl core biopsy RT: BREAST LUMP ([id number]) MM/MM post biopsy RT w/CAD: POST U/S [...] recommended. Impression dictated by: Stephen Shelton Jr., EstephanieOYash12/19/2023 9:31 AM Dictation Location: [place] [address] Addendum Dictated By: Stephen Shelton Jr, DO Addendum Signed By: <Electronically signed by Stephen Shelton Jr, DO in OV> 12/19/[address] Addendum Cosigned By: DD/ /12/927 TD/TT: [...] of the right breast was performed by sleep lab technologist . The patient's overlying skin was anesthetized with 1% lidocaine. The deeper soft tissues up to and around the mass were anesthetized with lidocaine mixed with epinephrine. Following this, multiple core biopsies of the right breast mass were performed using a 12-gauge Locately vacuum-assisted core biopsy needle under ultrasound guidance. [...] of migration. MM/MM post biopsy RT w/CAD Procedure Note Radiology, Radiologist, - 12/19/2023 [facility] Main [place] [address] [place] [address] Mammography Report Signed with Addenda Patient: Ayana Potter LMR#: [id number] 847 : 1970Acct:[id number] Age/Sex: 53 / FADM Date: 12/17/23 Loc: [facility] Room:Type: [facility] Attending Dr: Alexandre Oliver DO Copies to: Salas Page,DO Alexandre Oliver DO Ordering Provider: Alexandre Oliver DO Date of Service: 12/17/23 US/US breast ndl core biopsy RT: BREAST LUMP ([id number]) MM/MM post biopsy RT w/CAD: POST U/S BX WITH CLIP ADDENDUM 1 Addendum for pathology: Ultrasound-guided biopsy of mass 6:30 position of the right breast 4 cmfrom the nipple: 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 Negative for in situ or invasivecarcinoma. Findings are benign and concordant with imaging. Surgical excision shouldbe contemplated. If no intervention is performed, diagnostic right breast mammogram andultrasound in 6 months is recommended. Impression dictated by: Stephen Shelton Jr., D.OYash12/19/2023 9:31 AM Dictation Location: [place] [address] Addendum Dictated By: Stephen Shelton Jr, DO Addendum Signed By: <Electronically signed by Jr Cuadra DO in OV> 12/19/23930 Addendum Cosigned By: DD/ /12/927 TD/TT: 12/19/2310/12/930 ULTRASOUND GUIDED VACUUM-ASSISTED HOLOGIC ATEC SYSTEM CORE BIOPSIES OF THERIGHT BREAST: CLINICAL DATA: Mass 6:30 position right breast PROCEDURE: The risks, benefits and alternatives to an ultrasound guidedvacuum-assisted Hologic ATEC system core biopsy procedure were discussed with the patient and writteninformed consent was obtained. Ultrasonographic survey of the 6:30 position of the right breast wasperformed by sleep lab technologist . The patient's overlying skin was anesthetized with 1% lidocaine. Thedeeper soft tissues up to and around the mass were anesthetized with lidocaine mixed with epinephrine.Following this, multiple core biopsies of the right breast mass were performed using a 12-gaugeSuros vacuum-assisted core biopsy needle under ultrasound guidance. Multiple core biopsy specimenswere obtained. A metallic post biopsy marker was then placed. Post procedure mammograms wereperformed. The patient tolerated the procedure well without immediate postprocedural complication. POSTPROCEDURE MAMMOGRAMS: Craniocaudal and true lateral views of the rightbreast were performed using low dose digital technique. The postbiopsy marker is seen at the biopsy site without evidence ofmigration. MM/MM post biopsy RT w/CAD IMPRESSION: STATUS POST ULTRASOUND GUIDED VACUUM-ASSISTED CORE BIOPSIES OF THE RIGHTBREAST. RESULT CODE: NL Impression dictated by: Stephen Shelton Jr., D.OYash12/17/2023 12:52 PM Dictation Location: [facility] Transcribed By: [facility] 12/17/23 1252 Dictated By: Stephen Sheltno Jr, DO 12/17/23 1152 Signed By: <Electronically signed by Stephen Shelton Jr, DO inOV> 12/17/23 1252 us Alexandre Oliver DO IMG US PROCEDURES Edited Result - Final documented in this encounter Visit Diagnoses Not on filedocumented in this encounter Care Teams Telemetry Nurse Relationship Specialty Start Date End Date Salas Page [address] [place] [address] PCP - General Family Medicine 10/10/23 documented as of this encounter
--- OUTSIDE RECORDS SUMMARY | 2025-01-09 10:03 | XMS_ITS | Encounter Summary ---
Author Organization [facility] Address [address] [place] [address] Care Team Providers Care Hvac Service Technician Name Role Phone Martha Newman Primary Care Provider [phone] Encounter Details Date Type Department Care Team (Late st Contact Info) Description 10/21/2023 Clinisync Result Encounter [facility] External Department Unsolicited Radha Mohamud, [address] [place], [place] [id number] Social History Tobacco Use Types Packs/Day Years [...] 01/18/2025 11:00 AM EDT Office Visit [facility] OB [address] [place] [phone] Radha Mohamud [address] [place] [address] documented as of this encounter Procedures Procedure Name Priority Date/Time Associated Diagnosis Comments US PELVIS W/ TRANSVAGINAL 10/21/2023 12:28 PM EST documented in this encounter Results * US PELVIS W/ TRANSVAGINAL (10/21/2023 12:28 PM EST) Anatomical Region Laterality Modality Other 10/21/2023 12:2 8 PM EST Narrative 10/21/2023 2:26 [place] [address] Ultrasound Report Signed Patient: AYANA BROWN MR#: [id number] : 1970 Acct:[id number] Age/Sex: 53 / F ADM Date: 10/21/23 Loc: [facility] Attending Dr: Radha Mohamud D.O. Ordering Physician: Radha Mohamud D.O. Date of Service: 10/21/23 Procedure(s): US pelvis w/ transvaginal Accession Number(s): [id number] cc: MARTHA NEWMAN ; Radha Mohamud D.O. The [place] [address] Patient Name: AYANA BROWN MRN: [id number] date: 1970 Sex: F Assigned Patient Location: [facility] Current Patient Location: [facility] Accession/Order Number: [id number] Exam Date: 10/21/2023 11:29 Report Date: 10/21/2023 12:28 At the request of: RADHA MOHAMUD Procedure: US pelvis w/ transvaginal EXAMINATION: US pelvis transvaginal HISTORY: PCOS, [...] 1.5 cm with low-level echoes. US/US pelvis w/ transvaginal IMPRESSION: Bilateral ovarian cystic lesions measuring up to 1.5 cm. Complex cysts are favored Enlarged heterogeneous uterus with no focal masses. Electronically authenticated by: CORAZON ROUSSEAU Date: 10/21/2023 12:28 Dictated By: Corazon Rousseau M.D. Signed By: 10/21/23 1426 DD/ 1228 TD/TT: Designated Broker: Procedure Note Radiology, Radiologist, MD - 10/21/2023 [place] [address] Ultrasound Report Signed Patient: AYANA BROWNMR#: [id number] : 1970Acct:[id number] Age/Sex: 53 / FADM Date: 10/21/23 Loc: [facility] Attending Dr: Radha Mohamud D.O. Ordering Physician: Radha Mohamud D.O. Date of Service: 10/21/23 Procedure(s): US pelvis w/ transvaginal Accession Number(s): [id number] cc: MARTHA NEWMAN ; Radha Mohamud D.O. The [place] [id number] Patient Name: AYANA BROWN MRN: [id number] date: 1970 Sex: F Assigned Patient Location: [facility] Current Patient Location: [facility] Accession/Order Number: [id number] Exam Date: 10/21/2023 11:29 Report Date: 10/21/2023 12:28 At the request of: RADHA MOHAMUD Procedure: US pelvis w/ transvaginal EXAMINATION: US pelvis transvaginal HISTORY: PCOS, [...] measuring 1.5 cmwith low-level echoes. US/US pelvis w/ transvaginal IMPRESSION: Bilateral ovarian cystic lesions measuring up to 1.5 cm. Complex cysts are favored Enlarged heterogeneous uterus with no focal masses. Electronically authenticated by: CORAZON ROUSSEAU Date: 10/21/2023 12:28 Dictated By: Corazon Rousseau M.D. Signed By:10/21/23 1426 DD/ 1228 TD/TT: Designated Broker: us Radha Cade DO [facility] Final Result documented in this encounter Visit Diagnoses Not on filedocumented in this encounter Care Teams Hvac Service Technician Relationship Specialty Start Date End Date Martha Newman [address] [place] [address] PCP - General Family Medicine 10/10/23 documented as of this encounter
--- OUTSIDE RECORDS SUMMARY | 2025-01-09 10:03 | XMS_ITS | Encounter Summary ---
Author Organization [facility] Address [address] [place] [address] Care Team Providers Care Bearing Press Machine Operator Name Role Phone Salas Page Primary Care Provider [phone] Encounter Details Date Type Department Care Team (Late st Contact Info) Description 11/17/2024 External Result Encounter [facility] External Department Unsolicited Alexandre Oliver, DO [address] [address] Social History Tobacco Use Types Packs/Day Years [...] OB [address] [facility] [place] [address] Michael Mohamud DO [address] [facility] [place] [address] documented as of this encounter Procedures Procedure Name Priority Date/Time Associated Diagnosis Comments ECG 12-LEAD 11/17/2024 11:27 AM EDT documented in this encounter Results * ECG 12 lead (11/17/2024 11:27 AM EDT) 11/17/2024 11:2 7 AM EDT [facility] 11/18/2024 6:34 AM EDT [address] [address] Electrocardiograph Report Signed Patient: Ayana Potter MR#: [id number] 847 : 1970 Acct:[id number] Age/Sex: 54 / F ADM Date: 11/17/24 Loc: Room: Type: [facility] Attending Dr: Alexandre Oliver DO Ordering [...] previous ECGs available Confirmed by Bryan Boggs ([id number]) on 11/18/2024 6:34:15 AM Referred By: Electronically Signed By: Bryan Boggs Transcribed By: MUS Signed By Bryan Boggs MD 11/18/24 0634 Procedure Note Art Boggs MD - 11/18/[address] [address] Electrocardiograph Report Signed Patient: Ayana Potter LMR#: [id number] 847 : 1970Acct:[id number] Age/Sex: 54 / FADM Date: 11/17/24 Loc: [facility] Room:Type: [facility] Attending Dr: Alexandre Oliver DO Ordering [...] previous ECGs available Confirmed by Bryan Boggs ([id number]) on 11/18/2024 6:34:15 AM Referred By: Electronically Signed By: Bryan Boggs Transcribed By: MUS Signed By Bryan Boggs MD 11/18/24 0634 us Alexandre Oliver DO ECG ORDERABLES Final Res ult [facility] [address] [facility] [place] [address], documented in this encounter Visit Diagnoses Not on filedocumented in this encounter Care Teams Bearing Press Machine Operator Relationship Specialty Start Date End Date Salas Page [address] [place] [address] PCP - General Family Medicine 10/10/23 documented as of this encounter
--- OUTSIDE RECORDS SUMMARY | 2025-01-09 10:04 | XMS_ITS | Encounter Summary ---
Author Organization [facility] Address [address] [place] [address] Care Team Providers Care Collections Manager Name Role Phone Salas Page Primary Care Provider [phone] Encounter Details Date Type Department Care Team (Late st Contact Info) Description 01/01/2024 Abstract [facility] [address] [place] [address] Danielle Amaya LPN [email or web address] [address] [place] [address] Social History Tobacco Use Types [...] EDT Office Visit [facility] [address] [place] [address] Michael Mohamud DO [address] [facility] [place] [address] documented as of this encounter Visit Diagnoses Not on filedocumented in this encounter Care Teams Collections Manager Relationship Specialty Start Date End Date Salas Page [address] [place] [address] PCP - General Family Medicine 10/10/23 documented as of this encounter
[2025-01-10 06:38] LABS: CEA 0.8 ng/mL (0.0-4.7)
[2025-01-10 07:09] LABS: AFP, Serum, Tumor Marker 2.8 ng/mL (0.0-9.2); HCG Tumor Marker <1 mIU/mL (.)
== END 2025-01-09 10:02 | disposition home or self-care (01) ==
LOC: US 10:01
PROVIDERS: PCP Family Medicine; Visit Provider Obstetrics & Gynecology
DX: Z80.41 Family history of malignant neoplasm of ovary (principal); N83.201 Unspecified ovarian cyst, right side
CPT/HCPCS: 36415; 76830; 76856; 82105; 82378; 84702; 86304

== ENCOUNTER 2025-01-18 15:11 | Outpatient (REF) | payer BC, SELFPAY ==
--- OUTSIDE RECORDS SUMMARY | 2025-01-18 11:00 | XMS_ITS | Encounter Summary ---
Author Organization [facility] Address [address] [place] [address] Care Team Providers Care Military Logistics Specialist Name Role Phone Salas Page Primary Care Provider [phone] Reason for Visit * Reason Comments Well Women Visit Encounter Details Date Type Department Care Team (Late st Contact Info) Description 01/18/2025 11:00 AM EDT Office Visit [facility] [address] [place] [address] Michael Mohamud, DO [address] [facility] [address] Delfina Osorio, [facility]11 Well woman exam with routine gynecological exam; Breast cancer screening by mammogram; Postmenopausal state; Family history of ovarian cancer; Pelvic pain in female; Enlarged uterus Social History Tobacco Use Types Packs/Day Years [...] on file documented as of this encounter Last Filed Vital Signs Vital Sign Reading Time Taken Comments Blood Pressure 114/70 01/18/2025 11:34 AM EDT Pulse - - Temperature - - Respiratory Rate - - Oxygen Saturation - - Inhaled Oxygen Concentration - - Weight 59.6 kg (131 lb 6.4 oz) 01/18/2025 11:34 AM EDT Height - - Body Mass Index 22.21 09/17/2024 11:04 AM EST documented in this encounter Progress Notes * Sandra Sampsonjose, FLUME WORKER - 01/18/2025 11:00 AM EDT Reason for Appointment: Patient ID: Ayana Potter is a 54 y.o. female who presents for Well Women Visit Patient presents today for Annual Exam. and Consult appointment. MEDICATIONS No current outpatient medications ALLERGIES Allergies Allergen Reactions Penicillins Hives Other Reaction(s): Unknown PROBLEMS Active Ambulatory Problems Diagnosis Date Noted Postcoital bleeding 10/10/2023 Family history of ovarian cancer 10/10/2023 PCOS (polycystic ovarian syndrome) 10/10/2023 Encounter to discuss procedure 10/10/2023 Irregular menstrual cycle 10/10/2023 Complex ovarian cyst 10/10/2023 Mass of lower inner quadrant of right breast 12/16/2023 Bilateral inguinal hernia 07/12/2004 Hip arthritis 11/10/2024 Resolved Ambulatory Problems Diagnosis Date Noted No Resolved Ambulatory Problems Past Medical History: Diagnosis Date Ovarian cyst Polycystic ovary syndrome HISTORY PAST MEDICAL HISTORY SOCIAL HISTORY Past Medical History: Diagnosis Date Ovarian cyst Polycystic ovary syndrome 1999, 2002, 2004 Social History Tobacco Use Smoking status: Never Smokeless tobacco: Never Vaping Use Vaping status: Never Used Substance Use Topics Alcohol use: Yes Alcohol/week: 1.0 standard drink of alcohol Types: 1 Glasses of wine per week Comment: caffeine: 1 tea AM Drug use: Never FAMILY HISTORY Family History Problem Relation Name Age of Onset Ovarian cancer Mother Latesha Jimenez Other (CLL) Father No Known Problems Brother No Known Problems Daughter No Known Problems Son No Known Problems Son Prostate cancer Maternal Grandfather Prostate cancer Mother's Brother Melanoma Neg Hx Breast cancer Neg Hx Colon cancer Neg Hx SURGICAL HISTORY Past Surgical History: Procedure Laterality Date BI US GUIDED BREAST LOCALIZATION AND BIOPSY RIGHT Right 12/19/2023 BI US GUIDED BREAST LOCALIZATION AND BIOPSY RIGHT BREAST LUMPECTOMY Right 12/01/2024 SECTION, LOW TRANSVERSE 1999,2002,2004 COLONOSCOPY 2019 negative - [facility] DILATION AND CURETTAGE OF UTERUS 12/27/2023 HYSTEROSCOPY 12/27/2023 SALPINGECTOMY Bilateral 12/27/2023 REVIEW OF SYSTEMS Review of Systems: Review of Systems Constitutional: Negative. HENT: Negative. Eyes: Negative. Respiratory: Negative. Cardiovascular: Negative. Gastrointestinal: Negative. Genitourinary: Negative. Musculoskeletal: Negative. Skin: Negative. Neurological: Negative. All other systems reviewed and are negative. Hematological: Negative. Endocrine: Negative. Allergic/Immunologic: Negative. OBJECTIVE Objective: Physical Exam Constitutional: Appearance: Normal appearance. She is well-developed. Genitourinary: Vulva normal. Breasts: Breasts are soft. Right: Normal. Left: Normal. Cardiovascular: Rate and Rhythm: Normal rate and regular rhythm. Pulmonary: Effort: Pulmonary effort is normal. Breath sounds: Normal breath sounds. Abdominal: General: Bowel sounds are normal. There is no distension. Palpations: Abdomen is soft. Tenderness: There is no abdominal tenderness. There is no guarding or rebound. Musculoskeletal: General: No swelling. Normal range of motion. Right lower leg: No edema. Left lower leg: No edema. Neurological: Mental Status: She is alert and oriented to person, place, and time. Skin: General: Skin is warm and dry. Psychiatric: Mood and Affect: Mood normal. Behavior: Behavior normal. Vitals and nursing note reviewed. Exam conducted with a air carrier maintenance inspector present. Vitals: Estimated body mass index is 22.21 kg/m?? as calculated from the following: Height as of 09/17/24: 5' 4.5 . Weight as of this encounter: 131 lb 6.4 oz. BP: 114/70 No LMP recorded. ASSESSMENT & PLAN ICD-10-CM 1. Well woman exam with routine gynecological exam Z01.419 THIN PREP TIS PAP AND HR HPV DNA 2. Breast cancer screening by mammogram Z12.31 Bilateral screening mammogram Bilateral screening mammogram 3. Postmenopausal state Z78.0 DEXA bone density Annual: Patient presents today for an annual exam. Patient states she is doing well and has complaints of ongoing ovarian cyst. Pap was obtained without difficulty and patient given mammogram order to have scheduled/obtained. Discussed family history with patient, and she is possibly interested in genetic testing through [facility]. Nursing will reach out to patient sometime this week prior to end of day Saturday to give herdetails on what all would be tested. Discussed management with patient in regards to ongoing ovarian cyst, with negative tumor markers and possibilities. Discussed with patient following options: Repeat scan in 6 months--which was ordered today. Remove Left Ovary Laparoscopically KIMBERLY due to patients history of c-sections. Patient desires to follow up with repeat scan in 6 months and would like to wait for nursing to reach out in regards to genetic testing. Verbal consent also given to remove cervical polyp that was present/visualized during Pap smear. Polyp was removed and placed in formalin to be sent to pathology. Orders Placed This Encounter Procedures Bilateral screening mammogram DEXA bone density Follow Up: Patient is to return in 6 months for Repeat scan and also in one year for annual unless needed otherwise. Documented by Sandra Raymundo LPN on behalf of: Michael Mohamud DO documented in this encounter Plan of Treatment Upcoming Encounters Date Type Department Care Team (Late st Contact Info) Description 01/31/2026 4:00 PM EDT Office Visit [facility] [address] [place] [phone] Michael Mohamud DO [address] [facility] [address] [place]elf[place], [place] [id number] Scheduled Orders Name Type Priority Associated Diagnoses Orde r Schedule Bilateral screening mammogram Imaging Routine Breast cancer screening by mammogram Expected: 01/18/2025, Expires: 03/20/2026 DEXA bone density Imaging Routine Postmenopausal state Expected: 01/18/2025 (Approximate), Expires: 01/18/2026 THIN PREP TIS PAP AND HR HPV DNA Pathology and Cytology Routine Well woman exam with routine gynecological exam Ordered: 01/18/2025 US Pelvis w/ TV Imaging Routine Family history of ovarian cancer Pelvic pain in female Enlarged uterus Expected: 01/18/2025, Expires: 07/20/2025 documented as of this encounter Visit Diagnoses Diagnosis Well woman exam with routine gynecological exam Routine gynecological examination Breast cancer screening by mammogram Postmenopausal state Asymptomatic postmenopausal status (age-related) (natural) Family history of ovarian cancer Family history of malignant neoplasm of ovary Pelvic pain in female Unspecified symptom associated with female genital organs Enlarged uterus Hypertrophy of uterus documented in this encounter Care Teams Military Logistics Specialist Relationship Specialty Start Date End Date Salas Page [address] [place] [address] PCP - General Family Medicine 10/10/23 documented as of this encounter
--- OUTSIDE RECORDS SUMMARY | 2025-01-18 15:15 | XMS_ITS | Encounter Summary ---
Author Organization [facility] Address [address] [place] [address] Care Team Providers Care Tongue And Groove Machine Setter Name Role Phone Salas Page Primary Care Provider [phone] Encounter Details Date Type Department Care Team (Late st Contact Info) Description 12/12/2023 External Result Encounter [facility] External Department Unsolicited Corby Winter, DO [address] [facility] [address] [place] [address] Social History Tobacco Use Types Packs/Day Years [...] EDT Office Visit [facility] [address] [facility] [place] [phone] Michael Mohamud, DO [address] [facility] [place] [address] documented as of this encounter Procedures Procedure Name Priority Date/Time Associated Diagnosis Comments BI MAMMOGRAM DIAGNOSTIC TOMOSYNTHESIS BILATERAL 12/12/2023 1:22 PM EDT documented in this encounter Results * Bilateral diagnostic mammogram with tomosynthesis (12/12/2023 1:22 PM EDT) Anatomical Region Laterality Modality Breast Bilateral Mammography 12/12/2023 1:22 PM EDT Impressions 12/12/2023 1:28 PM EDT Developing solid right breast nodule. Ultrasound-guided biopsy [...] Luis Mares M.D.12/12/2023 1:25 PM Dictation Location: [facility] Tech: Kristan Lucio Transcribed By: PWS 12/12/23 1325 Dictated By: José Luis Mares DO 12/12/23 1322 Signed By: <Electronically signed by José Luis Mares DO in OV> 12/12/23 1325 Narrative 12/12/2023 1:28 PM EDT [facility] Main [address] [address] Ultrasound Report Signed Patient: Ayana Potter MR#: [id number] : 1970 Acct:[id number] Age/Sex: 53 / F ADM Date: 12/12/23 Loc: CT Room: Type: [facility] Attending Dr: Corby Winter DO Ordering Provider: Corby Winter DO Date of Service: 12/12/23 MM/MM diagnostic mammo BI w/CAD: N63.10 ([id number]) US/US breast RT limited: N63.10 Copies to: Corby Winter DO BILATERAL Screening Full Field digital mammogram [...] lymph nodes identified. US/US breast RT limited Procedure Note Radiology, Radiologist, - 12/12/[address] [facility] Main [place] [address] [place] [address] Ultrasound Report Signed Patient: Ayana Potter LMR#: [id number] : 1970Acct:[id number] Age/Sex: 53 / FADM Date: 12/12/23 Loc: CT Room:Type: [facility] Attending Dr: Corby Winter DO Ordering Provider: Corby Winter DO Date of Service: 12/12/23 MM/MM diagnostic mammo BI w/CAD: N63.10 ([id number]) US/US breast RT limited: N6.10 Copies to: Corby Winter DO BILATERAL Screening Full Field digital mammogram with 3-D imaging. Full field digital CC and MLO imaging performed. CAD utilized. COMPARISON: 12/28/2022 HISTORY: Annual screening BREAST COMPOSITION: Scattered fibroglandular densities of the breastparenchyma identified BREAST CALCIFICATIONS: Benign calcifications present. VASCULAR CALCIFICATIONS: None ARCHITECTURAL DISTORTION: None BREAST NODULE: Developing right oval 2 cm right breast nodule in region ofpalpable abnormality. This is in a posterior inferior portion. AXILLARY LYMPH NODES: Normal POSTSURGICAL CHANGES: None Targeted right breast ultrasound region of lump scanned demonstrating 18 x10 x 21 mm oval macrolobulated homogeneous hypoechoic solid nodule. Small right axillarylymph nodes identified. US/US breast RT limited IMPRESSION: Developing solid right breast nodule. Ultrasound-guided biopsyrecommended. RESULT CODE: 4 Suspicious Abnormality - Biopsy Considered DENSITY CODE: 2 (approximately 25-50% glandular) FOLLOW UP: BIO THE FALSE-NEGATIVE RATE OF MAMMOGRAPHY IS APPROXIMATELY 10%. IMAGING OF A PALPABLE ABNORMALITY MUST BE BASED ON CLINICAL GROUNDS. PATIENT WAS ENTERED INTO A REMINDER SYSTEM WITH A TARGET DUE DATE FOR THENEXT MAMMOGRAM. Impression dictated by: José Luis Mares M.D.12/12/2023 1:25 PM Dictation Location: [facility] Tech: Kristan Lucio Transcribed By: PWS 12/12/23 1325 Dictated By: José Luis Mares DO 12/12/23 1322 Signed By: <Electronically signed by José Luis Mares DO in OV> 12/12/23 1325 us Corby Winter DO IMG BI PROCEDURES Final Resul t documented in this encounter Visit Diagnoses Not on filedocumented in this encounter Care Teams Tongue And Groove Machine Setter Relationship Specialty Start Date End Date Salas Page [address] [place] [address] PCP - General Family Medicine 10/10/23 documented as of this encounter
--- OUTSIDE RECORDS SUMMARY | 2025-01-18 15:15 | XMS_ITS | Encounter Summary ---
Author Organization [facility] Address [address] [place] [address] Care Team Providers Care Baseball Glove Shaper Name Role Phone Salas Page Primary Care Provider [phone] Encounter Details Date Type Department Care Team (Late st Contact Info) Description 01/18/2025 Telephone [facility] [address] [place] [address] Sandra Raymundo LPN Social History Tobacco Use Types Packs/Day Years [...] on file documented as of this encounter Miscellaneous Notes * Telephone Encounter - Sandra Raymundo LPN - 01/18/2025 1:24 PM EDT Call patient with information in regards to [facility] for genetic testing and what test they offer in the routine panel. Call by end of day Saturday. documented in this encounter Plan of Treatment Upcoming Encounters Date Type Department Care Team (Late st Contact Info) Description 01/31/2026 4:00 PM EDT Office Visit [facility] [address] [facility] [place] [phone] Michael Mohamud, [address] [facility] [place] [address] documented as of this encounter Visit Diagnoses Not on filedocumented in this encounter Care Teams Baseball Glove Shaper Relationship Specialty Start Date End Date Salas Page [address] [place] [address] PCP - General Family Medicine 10/10/23 documented as of this encounter
--- OUTSIDE RECORDS SUMMARY | 2025-01-18 15:15 | XMS_ITS | Encounter Summary ---
Author Organization [facility] Address [address] [place] [address] Care Team Providers Care Benefit Specialist Name Role Phone Martha Newman Primary Care Provider [phone] Encounter Details Date Type Department Care Team (Late st Contact Info) Description 01/09/2025 Clinisync Result Encounter [facility]S External Department Unsolicited Radha Mohamud, DO [address] [facility] [place] [address] Social History Tobacco Use Types Packs/Day Years [...] EDT Office Visit [facility] BCP OB [address] [facility] [place] [phone] Radha Mohamud, DO [address] [place] [address] documented as of this encounter Procedures Procedure Name Priority Date/Time Associated Diagnosis Comments US PELVIS W/ TRANSVAGINAL 01/09/2025 12:58 PM EDT ELCH AFP TUMOR MARKER Routine 01/09/2025 10:37 AM EDT [facility] HCG,BETA-QUANT,TUMOR MARKER Routine 01/09/2025 10:37 AM EDT ALL CEA Routine 01/09/2025 10:37 AM EDT ALL CA 125 Routine 01/09/2025 10:37 AM EDT documented in this encounter Results * US PELVIS W/ TRANSVAGINAL (01/09/2025 12:58 PM EDT) Anatomical Region Laterality Modality Other 01/09/2025 12:5 8 PM EDT Narrative 01/09/2025 1:01 PM EDT [address] [address] Ultrasound Report Signed Patient: AYANA BROWN MR#: [id number] : 1970 Acct:[id number] Age/Sex: 54 / F ADM Date: 01/09/25 Loc: US Attending Dr: Radha Mohamud D.O. Ordering Physician: Radha Mohamud D.O. Date of Service: 01/09/25 Procedure(s): US pelvis w/ transvaginal Accession Number(s): [id number] cc: MARTHA NEWMAN ; Radha Mohamud D.O. The [address] [address] Patient Name: AYANA BROWN MRN: [id number] date: 1970 Sex: F Assigned Patient Location: Current Patient Location: US Accession/Order Number: [id number] Exam Date: 01/09/2025 12:53 Report Date: 01/09/2025 12:58 At the request of: RADHA MOHAMUD DO Procedure: US pelvis w/ transvaginal EXAMINATION TYPE: US pelvis w/ transvaginal Grayscale, color scale Doppler, vascular duplex analysis of the bilateral ovaries DATE OF EXAM ORDERED: 01/09/2025 10:36 AM HISTORY: Family history of ovarian cancer, follow-up COMPARISON: 10/21/2023 TECHNIQUE: Realtime Transvaginal and Transabdominal imaging was performed. Transvaginal imaging was utilized to better evaluate the ovaries and the endometrial stripe. Grayscale, color scale Doppler, vascular duplex analysis of the bilateral ovaries was performed to assess blood flow. FINDINGS: The uterus measures 11.2 x 5.4 x 7.0 cm. The uterus is normal in echogenicity. Endometrium: Normal thickness and appearance. The endometrium is 9 mm in thickness. A small amount of fluid is noted in the cervical canal. Ovaries: Multiple cystic structures are noted in the ovary. There is a thick-walled cyst measuring 1.5 x 1.3 x 1.5 cm in greatest dimension, similar to the prior exam. There is also an echogenic 5 mm structure within the left ovary. There is a dominant follicle in the left ovary measuring up to 2 cm in greatest dimension. Right Ovary measurements: 3.3 x 2.4 x 2.5 cm Left Ovary measurements: 3.4 x 2.6 x 2.5 cm No abnormal adnexal mass is seen. No free fluid in the pelvic cul-de-sac. Vascular duplex analysis of the bilateral ovaries demonstrates normal blood flow without evidence of ovarian ischemia. US/US pelvis w/ transvaginal IMPRESSION: There is a thick-walled cyst in the right ovary measuring up to 1.5 cm in greatest dimension suggesting a complex cyst. There is a tiny echogenic focus in the left ovary which is nonspecific. There are dominant follicles within the left ovary. No evidence of ovarian ischemia. Impression dictated by: Corby Dorman M.D. 01/09/2025 12:58 PM Dictation Location: [place] [address] Electronically authenticated by: [id number] Y Date: 01/09/2025 12:58 Dictated By: Corby Dorman M.D. Signed By: 01/09/25 1301 DD/ 1254 TD/TT: Supervisor Concrete Stone Finishing: Procedure Note Radiology, Radiologist, - 01/09/2025 [place] [address] Ultrasound Report Signed Patient: AYANA BROWNMR#: [id number] : 1970Acct:[id number] Age/Sex: 54 / FADM Date: 01/09/25 Loc: US Attending Dr: Radha Mohamud D.O. Ordering Physician: Radha Mohamud D.O. Date of Service: 01/09/25 Procedure(s): US pelvis w/ transvaginal Accession Number(s): [id number] cc: MARTHA NEWMAN ; Radha Mohamud D.O. The [place] [address] Patient Name: AYANA BROWN MRN: [id number] date: 1970 Sex: F Assigned Patient Location: Current Patient Location: US Accession/Order Number: [id number] Exam Date: 01/09/2025 12:53 Report Date: 01/09/2025 12:58 At the request of: RADHA MOHAMUD DO Procedure: US pelvis w/ transvaginal EXAMINATION TYPE: US pelvis w/ transvaginal Grayscale, color scaleDoppler, vascular duplex analysis of the bilateral ovaries DATE OF EXAM ORDERED: 01/09/2025 10:36 AM HISTORY: Family history of ovarian cancer, follow-up COMPARISON: 10/21/2023 TECHNIQUE: Realtime Transvaginal and Transabdominal imaging was performed. Transvaginal imaging was utilized to better evaluate the ovaries and the endometrial stripe. Grayscale, color scale Doppler, vascular duplexanalysis of the bilateral ovaries was performed to assess blood flow. FINDINGS: The uterus measures 11.2 x 5.4 x 7.0 cm. The uterus is normal in echogenicity. Endometrium: Normal thickness and appearance. The endometrium is 9 mm in thickness. A small amount of fluid is noted in the cervical canal. Ovaries: Multiple cystic structures are noted in the ovary. There is a thick-walled cyst measuring 1.5 x 1.3 x 1.5 cm in greatest dimension,similar to the prior exam. There is also an echogenic 5 mm structure within theleft ovary. There is a dominant follicle in the left ovary measuring up to 2cm in greatest dimension. Right Ovary measurements: 3.3 x 2.4 x 2.5 cm Left Ovary measurements: 3.4 x 2.6 x 2.5 cm No abnormal adnexal mass is seen. No free fluid in the pelvic cul-de-sac. Vascular duplex analysis of the bilateral ovaries demonstrates normalblood flow without evidence of ovarian ischemia. US/US pelvis w/ transvaginal IMPRESSION: There is a thick-walled cyst in the right ovary measuring up to 1.5 cm in greatest dimension suggesting a complex cyst. There is a tiny echogenic focus in the left ovary which is nonspecific. There are dominant follicles within the left ovary. No evidence of ovarian ischemia. Impression dictated by: Corby Dorman M.D. 01/09/2025 12:58 PM Dictation Location: [place] [address] Electronically authenticated by: [id number] Y Date: 2:58 Dictated By: Corby Dorman M.D. Signed By:01/09/25 1301 DD/ 1258 TD/TT: Supervisor Concrete Stone Finishing: [facility] DO [facility] Final Result * HCG,BETA-QUANT,TUMOR MARKER (01/09/2025 10:37 AM EDT) HCG TUMOR MARKER <1 . mIU/mL TB Comment: Female (Non-) 0 - 5 (Postmenopausal) 0 - 8 [facility] Electrochemiluminescence Immunoassay (ECLIA) The [facility] HCG + beta assay recognizes the holo-hormone, human chorionic gonadotropin (hCG), nicked forms of hCG, the beta-core fragment and the free beta-subunit in human serum and plasma. Results obtained with different test methods or kits cannot used interchangeably. This assay is intended for the early detection of . The result should not be used for treatment or for diagnostic purposes without confirmation of the diagnosis by another medically established diagnostic product or procedure. This test was developed and its performance characteristics determined by [facility]. It has not been cleared or approved by the Food and Drug Administration for use as a tumor marker. This test is not interpretable as a tumor marker in females. Performed at: [address] [id number] Transition Program Manager: Esequiel Duran PhD, Phone: [phone] 01/09/2025 10:3 7 AM EDT 01/09/2025 10:40 AM EDT Narrative [facility] - 01/10/2025 7:09 AM EDT [facility] Final Result Performing Organization Address [facility] Co de Phone Number [facility] * ALL CA 125 (01/09/2025 10:37 AM EDT) Pathologist [facility] CANCER ANTIGEN (CA) 125 9.0 0.0 - 38.1 U/mL [facility] Comment: [facility] Electrochemiluminescence Immunoassay (ECLIA) Values obtained with different assay methods or kits cannot be used interchangeably. Results cannot be interpreted as absolute evidence of the presence or absence of malignant disease. 01/09/2025 10:3 7 AM EDT 01/09/2025 10:40 AM EDT Narrative [facility] - 01/10/2025 7:09 AM EDT [facility] Final Result Performing Organization Address City/[facility]/ZIP Co de Phone Number [facility] * ELCH AFP TUMOR MARKER (01/09/2025 10:37 AM EDT) AFP, SERUM, TUMOR MARKER 2.8 0.0 - 9.2 ng/mL TB Comment: [facility] Electrochemiluminescence Immunoassay (ECLIA) Values obtained with different assay methods or kits cannot be used interchangeably. Results cannot be interpreted as absolute evidence of the presence or absence of malignant disease. This test is not interpretable in females. 01/09/2025 10:3 7 AM EDT 01/09/2025 10:40 AM EDT Narrative [facility] - 01/10/2025 7:09 AM EDT [facility] DO [facility] Final Result Performing Organization Address City/[facility]/ZIP Co de Phone Number [facility] * ALL CEA (01/09/2025 10:37 AM EDT) CEA 0.8 0.0 - 4.7 ng/mL TB Comment: Nonsmokers <3.9 Smokers <5.6 [facility] Electrochemiluminescence Immunoassay (ECLIA) Values obtained with different assay methods or kits cannot be used interchangeably. Results cannot be interpreted as absolute evidence of the presence or absence of malignant disease. Performed at: [address] [id number] Transition Program Manager: Esequiel Duran PhD, Phone: [phone] 01/09/2025 10:3 7 AM EDT 01/09/2025 10:40 AM EDT Narrative CLIN[facility] - 01/10/2025 6:38 AM EDT [facility]ade DO [facility] Final Result Performing Organization Address City/[facility]/ZIP Co de Phone Number [facility] documented in this encounter Visit Diagnoses Not on filedocumented in this encounter Care Teams Benefit Specialist Relationship Specialty Start Date End Date Martha Newman [address] [place] [address] PCP - General Family Medicine 10/10/23 documented as of this encounter
--- OUTSIDE RECORDS SUMMARY | 2025-01-18 15:15 | XMS_ITS | Encounter Summary ---
Author Organization [facility] Address [address] [place] [address] Care Team Providers Care Lunchroom Worker Name Role Phone Salas Page Primary Care Provider [phone] Encounter Details Date Type Department Care Team (Late st Contact Info) Description 01/18/2025 Bamboo flowsheet [facility] BCP OB [address] [place] [phone] Michael Mohamud, DO [address] [place], [facility]11 Social History Tobacco Use Types Packs/Day Years [...] EDT Office Visit NOMS BCP OB [address] [facility] [place] [phone] Michael Mohamud DO [address] [facility] [place] [address] documented as of this encounter Visit Diagnoses Not on filedocumented in this encounter Care Teams Lunchroom Worker Relationship Specialty Start Date End Date Salas Page [address] [facility] [place] [address] PCP - General Family Medicine 10/10/23 documented as of this encounter
--- OUTSIDE RECORDS SUMMARY | 2025-01-18 15:16 | XMS_ITS | Encounter Summary ---
Author Organization [facility] Address [address] [place] [address] Care Team Providers Care Rock Climbing Instructor Name Role Phone Martha Newman Primary Care Provider [phone] Encounter Details Date Type Department Care Team (Late st Contact Info) Description 10/21/2023 Clinisync Result Encounter NOMS External Department Unsolicited Radha Mohamud, [address] [place], [place] [phone] Social History Tobacco Use Types Packs/Day Years [...] 01/31/2026 4:00 PM EDT Office Visit [facility] OB [address] [place] [phone] Radha Mohamud [address] [place] [address] documented as of this encounter Procedures Procedure Name Priority Date/Time Associated Diagnosis Comments US PELVIS W/ TRANSVAGINAL 10/21/2023 12:28 PM EST documented in this encounter Results * US PELVIS W/ TRANSVAGINAL (10/21/2023 12:28 PM EST) Anatomical Region Laterality Modality Other 10/21/2023 12:2 8 PM EST Narrative 10/21/2023 2:26 [place] [address] Ultrasound Report Signed Patient: AYANA BROWN MR#: [id number] : 1970 Acct:[id number] Age/Sex: 53 / F ADM Date: 10/21/23 Loc: NOMS Attending Dr: Radha Mohamud D.O. Ordering Physician: Radha Mohamud D.O. Date of Service: 10/21/23 Procedure(s): US pelvis w/ transvaginal Accession Number(s): [id number] cc: MARTHA NEWMAN ; Radha Mohamud D.O. The [place] [address] Patient Name: AYANA BROWN MRN: [id number] date: 1970 Sex: F Assigned Patient Location: [facility] Current Patient Location: [facility] Accession/Order Number: [id number] Exam Date: 10/21/2023 11:29 Report Date: 10/21/2023 [...] Signed By: 10/21/23 1426 DD/ 1228 TD/TT: Per Diem Physical Therapist Assistant: Procedure Note Radiology, Radiologist, MD - 10/21/2023 [place] [address] Ultrasound Report Signed Patient: AYANA BROWNMR#: [id number] : 1970Acct:[id number] Age/Sex: 53 / FADM Date: 10/21/23 Loc: NOMS Attending Dr: Radha Mohamud D.O. Ordering Physician: Radha Mohamud D.O. Date of Service: 10/21/23 Procedure(s): US pelvis w/ transvaginal Accession Number(s): [id number] cc: MARTHA NEWMAN ; Radha Mohamud D.O. The [place] [id number] Patient Name: AYANA BROWN MRN: [id number] date: 1970 Sex: F Assigned Patient Location: [facility] Current Patient Location: [facility] Accession/Order Number: [id number] Exam Date: 10/21/2023 11:29 Report Date: 10/21/2023 [...] M.D. Signed By:10/21/23 1426 DD/ 1228 TD/TT: Per Diem Physical Therapist Assistant: us Radha Cade DO [facility] Final Result documented in this encounter Visit Diagnoses Not on filedocumented in this encounter Care Teams Rock Climbing Instructor Relationship Specialty Start Date End Date Martha Newman [address] [place] [address] PCP - General Family Medicine 10/10/23 documented as of this encounter
--- OUTSIDE RECORDS SUMMARY | 2025-01-18 15:16 | XMS_ITS | Encounter Summary ---
Author Organization [facility] Address [address] [place] [address] Care Team Providers Care Political Anthropologist Name Role Phone Salas Page Primary Care Provider [phone] Encounter Details Date Type Department Care Team (Late st Contact Info) Description 01/01/2024 Abstract [facility] BCP OB [address] [place] [address] Danielle Amaya LPN [address] [place] [address] [place] [address] Social History Tobacco Use Types [...] [facility] BCP OB [address] [facility] [place] [place] [phone] Michael Mohamud DO [address] [facility] [place] [address] documented as of this encounter Visit Diagnoses Not on filedocumented in this encounter Care Teams Political Anthropologist Relationship Specialty Start Date End Date Salas Page [address] [place] [address] PCP - General Family Medicine 10/10/23 documented as of this encounter
--- OUTSIDE RECORDS SUMMARY | 2025-01-18 15:16 | XMS_ITS | Encounter Summary ---
Author Organization [facility] Address [address] [place] [address] Care Team Providers Care Turning Sander Operator Name Role Phone Salas Page Primary Care Provider [phone] Encounter Details Date Type Department Care Team (Late st Contact Info) Description 12/24/2023 Clinisync Result Encounter NOMS External Department Unsolicited Radha Mohamud, DO [address] [facility] [address] [place] [address] Social History Tobacco Use Types Packs/Day Years [...] EDT Office Visit [facility]S BCP OB [address] [facility] [phone] Radha Mohamud, DO [address] [facility] [place] [address] documented as of this encounter Procedures Procedure Name Priority Date/Time Associated Diagnosis Comments ECG 12-LEAD 12/24/2023 8:37 AM EDT documented in this encounter Results * ECG 12-LEAD (12/24/2023 8:37 AM EDT) Anatomical Region Laterality Modality Other 12/24/2023 8:37 AM EDT Narrative 12/24/2023 10:36 PM EDT [address] [address] Electrocardiograph Report Signed Patient: AYANA BROWN MR#: [id number] : 1970 Acct:[id number] Age/Sex: 53 / F ADM Date: 12/24/23 Loc: PST Attending Dr: Radha Mohamud D.O. Ordering Physician: Radha Mohamud D.O. Date of Service: 12/24/23 Procedure(s): ECG 12 lead Accession Number(s): [id number] cc: [facility] Test Date: 2023-12-24 Pat Name: AYANA BROWN Department: Room: - Gender: Female Diesel Dinkey Engineer: : 1970 Requested By: RADHA MOHAMUD Order Number: [id number] Reading MD: BON VAZQUEZ Measurements Intervals [place] Rate: 51 P: 85 [place]: 157 QRS: 63 QRSD: 93 T: 52 QT: 429 QTc: 397 Interpretive Statements SINUS BRADYCARDIA POSSIBLE RIGHT VENTRICULAR CONDUCTION DELAY [RSR (QR) IN V1/V2] No previous ECG available for comparison Electronically Signed On 12-24-2023 22:36:29 EDT by BON VAZQUEZ Dictated By: Bon Vazquez D.O. Signed By: 12/24/236 DD/ TD/TT: Senior Support Analyst: Procedure Note Radiology, Radiologist, - 12/24/2023 The [place] [id number] Electrocardiograph Report Signed Patient: JUAN C BROWN#: [id number] : 1970Acct:[id number] Age/Sex: 53 / FADM Date: 12/24/23 Loc: PST Attending Dr: Radha Mohamud D.O. Ordering Physician: Radha Mohamud D.O. Date of Service: 12/24/23 Procedure(s): ECG 12 lead Accession Number(s): [id number] cc: [facility] Test Date: 2023-12-24 Pat Name: AYANA BROWN Department: Room: - Gender: Female Diesel Dinkey Engineer: : 1970 Requested By: RADHA MOHAMUD Order Number: [id number] Reading MD: BON VAZQUEZ Measurements Intervals [place] Rate: 51 P: 85 [place]: 157 QRS: 63 QRSD: 93 T: 52 QT: 429 QTc: 397 Interpretive Statements SINUS BRADYCARDIA POSSIBLE RIGHT VENTRICULAR CONDUCTION DELAY [RSR (QR) IN V1/V2] No previous ECG available for comparison Electronically Signed On 12-24-2023 22:36:29 EDT by BON VAZQUEZ Dictated By: Bon Vazquez D.O. Signed By:12/24/23 2236 DD/ 0837 TD/TT: Senior Support Analyst: us Radha Mohamud DO [facility] Final Result documented in this encounter Visit Diagnoses Not on filedocumented in this encounter Care Teams Turning Sander Operator Relationship Specialty Start Date End Date Salas Page [address] [place] [address] PCP - General Family Medicine 10/10/23 documented as of this encounter
--- OUTSIDE RECORDS SUMMARY | 2025-01-18 15:16 | XMS_ITS | Encounter Summary ---
Author Organization [facility] Address [address] [place] [address] Care Team Providers Care Barrel Cleaner Name Role Phone Salas Page Primary Care Provider [phone] Encounter Details Date Type Department Care Team (Late st Contact Info) Description 12/02/[address] [facility] [address] [facility] [address] [place] [phone] Alexandre Oliver, DO [address] [facility] 150 [place] [address] Social History Tobacco Use Types [...] Office Visit [facility] BCP OB [address] [facility] [place] [phone] Michael Mohamud DO [address] [place] [address] [place] [address] documented as of this encounter Procedures Procedure Name Priority Date/Time Associated Diagnosis Comments GENERAL PATHOLOGY Routine 12/02/2024 3:42 PM EDT documented in this encounter Results * GENERAL PATHOLOGY (12/02/2024 3:42 PM EDT) us Alexandre Oliver DO [facility] Final Res ult documented in this encounter Visit Diagnoses Not on filedocumented in this encounter Care Teams Barrel Cleaner Relationship Specialty Start Date End Date Salas Page [address] [place] [address] PCP - General Family Medicine 10/10/23 documented as of this encounter
--- OUTSIDE RECORDS SUMMARY | 2025-01-18 15:16 | XMS_ITS | Encounter Summary ---
Author Organization [facility] Address [address] [place] [address] Care Team Providers Care Make Ready Worker Name Role Phone Salas Page Primary Care Provider [phone] Encounter Details Date Type Department Care Team (Late st Contact Info) Description 01/03/2024 Abstract [facility] BCP OB [address] [place] [address] Danielle Amaya LPN [address] [place] [address] [place] [address] Social History Tobacco Use Types [...] EDT Office Visit [facility] BCP OB [address] [facility] [place] [phone] Michael Mohamud DO [address] [facility] [place] [address] documented as of this encounter Visit Diagnoses Not on filedocumented in this encounter Care Teams Make Ready Worker Relationship Specialty Start Date End Date Salas Page [address] [address] PCP - General Family Medicine 10/10/23 documented as of this encounter
--- OUTSIDE RECORDS SUMMARY | 2025-01-18 15:16 | XMS_ITS | Clinical Summary ---
Author Organization [facility] Address [address] [place] [address] Care Team Providers Care Clam Treader Name Role Phone Martha Newman Primary Care Provider [phone] Allergies Active Allergy Reactions Criticality Noted Date Comments Penicillins Hives 07/11/2004 Other Reaction(s): Unknown Medications No known medications Active Problems Problem Noted Date Diagnosed Date Pelvic pain in female 01/18/2025 Enlarged uterus 01/18/2025 Hip arthritis 11/10/2024 Mass of lower inner quadrant of right breast Postcoital bleeding 10/10/2023 Family history of ovarian cancer 10/10/2023 PCOS (polycystic ovarian syndrome) 10/10/2023 Encounter to discuss procedure 10/10/2023 Irregular menstrual cycle 10/10/2023 Complex ovarian cyst 10/10/2023 Bilateral inguinal hernia 07/12/2004 Overview (11/10/2024): updated for 06/03 reg imo load Encounters Date Type Department Care Team Description 01/18/2025 11:00 AM EDT Office Visit [facility] [address] [place] [address] Radha Mohamud DO Well woman exam with routine gynecological exam; Breast cancer screening by mammogram; Postmenopausal state; Family history of ovarian cancer; Pelvic pain in female; Enlarged uterus 01/18/2025 Telephone [facility] [address] [place] [address] Sandra Raymundo LPN 01/18/2025 Bamboo flowsheet [facility] OB [address] [place] [address] Radha Mohamud, DO 01/09/2025 Clinisync Result Encounter [facility] External Department Unsolicited Radha Mohamud, DO 12/23/2024 Telephone [facility] OB [address] [place] [address] Radha Mohamud, DO 12/11/2024 11:00 AM EDT Office Visit [facility] [address] [place] [phone] Alexandre Oliver, Mass of lower inner quadrant of right breast (Primary Dx) 12/11/2024 Travel 12/02/[address] [address] [place] [address] Alexandre Oliver, 11/26/2024 Travel 11/17/2024 External Result Encounter [facility] External Department Unsolicited Alexandre Oliver DO from Last 3 Months Family History Medical History Relation Name Comments No Known Problems Brother No Known Problems Daughter CLL Father Prostate cancer Maternal Grandfather Ovarian cancer [facility] Mother's Brother No Known Problems Son 1 No Known Problems Son 2 Breast cancer Neg Hx Colon cancer Neg Hx Melanoma Neg Hx Relation Name Status Comments Brother 1 Daughter Alive Father Maternal Grandfather Mother [facility] Mother's Brother Other Son 1 Alive Son 2 Alive Social [...] 6.4 oz) 01/18/2025 11:34 AM EDT Height 163.8 cm (5' 4.5 ) 09/17/2024 11:04 AM ES T Body Mass Index 22.21 09/17/2024 11:04 AM EST Plan of Treatment Upcoming Encounters Date Type Department Care Team (Late st Contact Info) Description 01/31/2026 4:00 PM EDT Office Visit [facility] [address] [place] [address] CadeRadha white, DO [address] [place] [address] Procedures Procedure Name Priority Date/Time Associated Diagnosis Comments US PELVIS W/ TRANSVAGINAL 01/09/2025 12:58 PM EDT UH HCG,BETA-QUANT,TUMOR MARKER Routine 01/09/2025 10:37 AM EDT ALL CA 125 Routine 01/09/2025 10:37 AM EDT ELCH AFP TUMOR MARKER Routine 01/09/2025 10:37 AM EDT ALL CEA Routine 01/09/2025 10:37 AM EDT GENERAL PATHOLOGY Routine 12/02/2024 3:4 2 PM EDT ECG 12-LEAD 11/17/2024 11:27 AM EDT from Last 3 Months Results * US PELVIS W/ TRANSVAGINAL (01/09/2025 12:58 PM EDT) Anatomical Region Laterality Modality Other 01/09/2025 12:5 8 PM EDT Narrative 01/09/2025 1:01 [place] [address] Ultrasound Report Signed Patient: AYANA BROWN MR#: [id number] : 1970 Acct:[id number] Age/Sex: 54 / F ADM Date: 01/09/25 Loc: US Attending Dr: Radha Mohamud D.O. Ordering Physician: Radha Mohamud D.O. Date of Service: 01/09/25 Procedure(s): US pelvis w/ transvaginal Accession Number(s): [id number] cc: MARTHA NEWMAN ; Radha Mohamud D.O. [place] [id number] Patient Name: AYANA BROWN MRN: [id number] date: 1970 Sex: F Assigned Patient Location: Current Patient Location: Accession/Order Number: [id number] Exam Date: 01/09/2025 12:53 Report Date: 01/09/2025 [...] Dorman M.D. 01/09/2025 12:58 PM Dictation Location: [place] [address] Electronically authenticated by: [id number] Y Date: 01/09/2025 12:58 Dictated By: Corby Dorman M.D. Signed By: 01/09/25 1301 DD/ 1258 TD/TT: Group Sales Manager: Procedure Note Radiology, Radiologist, MD - 01/09/2025 [place] [address] Ultrasound Report Signed Patient: JUAN C BROWN#: [id number] : 1970Acct:[id number] Age/Sex: 54 / FADM Date: 01/09/25 Loc: US Attending Dr: Radha Mohamud D.O. Ordering Physician: Radha Mohamud D.O. Date of Service: 01/09/25 Procedure(s): US pelvis w/ transvaginal Accession Number(s): [id number] cc: MARTHA NEWMAN ; Radha Mohamud D.O. [address] [address] Patient Name: AYANA BROWN MRN: [id number] date: 1970 Sex: F Assigned Patient Location: Current Patient Location: Accession/Order Number: [id number] Exam Date: 01/09/2025 12:53 Report Date: 01/09/2025 [...] Dorman M.D. 01/09/2025 12:58 PM Dictation Location: [place] [address] Electronically authenticated by: [id number] Y Date: 2:58 Dictated By: Corby Dorman M.D. Signed By:01/09/25 1301 DD/ 1258 TD/TT: Group Sales Manager: Radha Cade DO [facility] Final Result * ELCH AFP TUMOR MARKER (01/09/2025 10:37 [...] Narrative [facility] - 01/10/2025 7:09 AM EDT Radha Cade DO [facility] Final Result [facility] * HCG,BETA-QUANT,TUMOR MARKER (01/09/2025 10:37 AM EDT) HCG TUMOR MARKER <1 . mIU/mL [facility] Comment: Female (Non-) 0 - 5 (Postmenopausal) [...] developed and its performance characteristics determined by [employer]. It has not been cleared or approved by the Food and Drug Administration for use as a tumor marker. This test is not interpretable as a tumor marker in females. Performed at: [address] [id number] Cloth Stock Sorter: Esequiel Duran PhD, Phone: [phone] 01/09/2025 10:3 7 AM EDT 01/09/2025 10:40 AM EDT Narrative [facility] - 01/10/2025 7:09 AM EDT Radha Cade DO [facility] Final Result Performing Organization Address [facility] de Phone Number [facility] * ALL CEA (01/09/2025 10:37 AM EDT) Pathologist [facility] CEA 0.8 0.0 - 4.7 ng/mL TB Comment: Nonsmokers <3.9 Smokers <5.6 [facility] Electrochemiluminescence Immunoassay (ECLIA) Values obtained with different assay methods or kits cannot be used interchangeably. Results cannot be interpreted as absolute evidence of the presence or absence of malignant disease. Performed at: [address] [id number] Cloth Stock Sorter: Esequiel Duran PhD, Phone: [phone] 01/09/2025 10:3 7 AM EDT 01/09/2025 10:40 AM EDT Narrative [facility] - 01/10/2025 6:38 AM EDT Radha Cade DO [facility] Final Result Performing Organization Address [facility] Co de Phone Number CLIN[facility]NY TB * ALL CA 125 (01/09/2025 10:37 AM EDT) Pathologist [facility] CANCER ANTIGEN (CA) 125 9.0 0.0 - 38.1 U/mL TB Comment: [facility] Electrochemiluminescence Immunoassay (ECLIA) Values obtained with different assay methods or kits cannot be used interchangeably. Results cannot be interpreted as absolute evidence of the presence or absence of malignant disease. 01/09/2025 10:3 7 AM EDT 01/09/2025 10:40 AM EDT Narrative [facility] - 01/10/2025 7:09 AM EDT us Radha Mohamud DO [facility] Final Result [facility] TB * GENERAL PATHOLOGY (12/02/2024 3:42 PM EDT) us Alexandre Oliver DO [facility] Final Res ult * ECG 12 lead (11/17/2024 11:27 AM EDT) 11/17/2024 11:2 7 AM EDT Narrative [facility] - 11/18/2024 6:34 AM EDT [facility] [place] [address] Electrocardiograph Report Signed Patient: Ayana Brown MR#: [id number] : 1970 Acct:[id number] Age/Sex: 54 / F ADM Date: 11/17/24 Loc: Room: Type: [facility] Attending Dr: Alexandre Oliver DO Ordering [...] previous ECGs available Confirmed by Bryan Boggs ([id number]) on 11/18/2024 6:34:15 AM Referred By: Electronically Signed By: Bryan Boggs Transcribed By: MUS Signed By Bryan Boggs MD 11/18/24 0634 Procedure Note Art Boggs MD - 11/18/2024 [facility] Main [place] [address] Electrocardiograph Report Signed Patient: Ayana Brown LMR#: [id number] : 1970Acct:[id number] Age/Sex: 54 / FADM Date: 11/17/24 Loc: PS Room:Type: [facility] Attending Dr: Alexandre Oliver DO Ordering [...] previous ECGs available Confirmed by Bryan Boggs ([id number]) on 11/18/2024 6:34:15 AM Referred By: Electronically Signed By: Bryan Boggs Transcribed By: MUS Signed By Bryan Boggs MD 11/18/24 0634 us Alexandre Oliver DO ECG ORDERABLES Final Res ult [address] [address], from Last 3 Months Insurance [facility] Care Teams Clam Treader Relationship Specialty Start Date End Date Martha Newman [address] [place] [address] PCP - General Family Medicine 10/10/23
--- OUTSIDE RECORDS SUMMARY | 2025-01-18 15:16 | XMS_ITS | Encounter Summary ---
Author Organization [facility] Address [address] [place] [address] Care Team Providers Care Field Coil Winder Name Role Phone Salas Page Primary Care Provider [phone] Encounter Details Date Type Department Care Team (Late st Contact Info) Description 12/19/[address] [facility] [address] [facility] [address] [place] [phone] Alexandre Oliver, DO [address] [facility] [address] [place] [address] Social History Tobacco Use Types [...] EDT Office Visit [facility] [address] [place] [address] Michael Mohamud DO [address] [place] [address] [place] [address] documented as of this encounter Procedures Procedure [...] on filedocumented in this encounter Care Teams Field Coil Winder Relationship Specialty Start Date End Date Salas Page [address] [place] [address] PCP - General Family Medicine 10/10/23 documented as of this encounter
--- OUTSIDE RECORDS SUMMARY | 2025-01-18 15:16 | XMS_ITS | Encounter Summary ---
Author Organization [facility] Address [address] [place] [address] Care Team Providers Care Senior Clinical Study Manager Name Role Phone Salas Page Primary Care Provider [phone] Encounter Details Date Type Department Care Team (Late st Contact Info) Description 12/17/2023 External Result Encounter [facility] External Department Unsolicited Alexandre Oliver, DO [address] [address] Social History Tobacco Use Types Packs/Day Years [...] Office Visit [facility] [address] [facility] [place] [phone] Michael Mohamud, DO [address] [facility] [place] [address] documented as of this encounter Procedures Procedure [...] Shelton Jr., D.OYash12/17/2023 12:52 PM Dictation Location: [facility] Transcribed By: PWS 12/17/23 1252 Dictated By: Stephen Shelton Jr, DO 12/17/23 1152 Signed By: <Electronically signed by Stephen Shelton Jr, DO in OV> 12/17/23 1252 Narrative 12/17/2023 12:54 PM EDT [facility] Main [address] [address] Mammography Report Signed with Addenda Patient: Ayana Potter MR#: [id number] : 1970 Acct:[id number] Age/Sex: 53 / F ADM Date: 12/17/23 [facility]: [facility] Room: Type: [facility] Attending Dr: Alexandre Oliver DO Copies to: DO Alexandre Garland DO Ordering Provider: Alexandre Oliver DO Date of Service: 12/17/23 US/US breast ndl core biopsy RT: BREAST LUMP ([id number]) MM/MM post biopsy RT w/CAD: POST U/S [...] Shelton Jr., EstephanieOYash12/19/2023 9:31 AM Dictation Location: [place] [address] Addendum Dictated By: Stephen Shelton Jr, DO [...] of the right breast was performed by electroencephalograph technologist . The patient's overlying skin was anesthetized with 1% lidocaine. The deeper soft tissues up to and around the mass were anesthetized with lidocaine mixed with epinephrine. Following this, multiple core biopsies of the right breast mass were performed using a 12-gauge Venuemob vacuum-assisted core biopsy needle under ultrasound guidance. [...] w/CAD Procedure Note Radiology, Radiologist, - 12/19/2023 [facility] Main [place] [address] [place] [address] Mammography Report Signed with Addenda Patient: Ayana Potter LMR#: [id number] : 1970Acct:[id number] Age/Sex: 53 / FADM Date: 12/17/23 Loc: [facility] Room:Type: [facility] Attending Dr: Alexandre Oliver DO Copies to: Salas Page,DO Alexandre Oliver DO Ordering Provider: Alexandre Oliver DO Date of Service: 12/17/23 US/US breast ndl core biopsy RT: BREAST LUMP ([id number]) MM/MM post biopsy RT w/CAD: POST U/S [...] Shelton Jr., D.OYash12/19/2023 9:31 AM Dictation Location: [place] [address] Addendum Dictated By: Stephen Shelton Jr, DO [...] position of the right breast wasperformed by electroencephalograph technologist . The patient's overlying skin was [...] Shelton Jr., D.OYash12/17/2023 12:52 PM Dictation Location: [facility] Transcribed By: [facility] 12/17/23 1252 Dictated By: Stephen Shelton Jr, DO 12/17/23 1152 Signed By: <Electronically signed by Stephen Shelton Jr, DO inOV> 12/17/23 1252 us Alexandre Oliver DO IMG US PROCEDURES Edited Result - Final documented in this encounter Visit Diagnoses Not on filedocumented in this encounter Care Teams Senior Clinical Study Manager Relationship Specialty Start Date End Date Salas Page [address] [place] [address] PCP - General Family Medicine 10/10/23 documented as of this encounter
--- OUTSIDE RECORDS SUMMARY | 2025-01-18 15:16 | XMS_ITS | Encounter Summary ---
Author Organization [facility] Address [address] [place] [address] Care Team Providers Care Milking Machine Technician Name Role Phone Martha Newman Primary Care Provider [phone] Encounter Details Date Type Department Care Team (Late st Contact Info) Description 10/21/2023 Clinisync Result Encounter [facility] External Department Unsolicited Radha Mohamud, [address] [place], [place] [id number] Social History Tobacco Use Types Packs/Day Years [...] 01/31/2026 4:00 PM EDT Office Visit [facility] OB [address] [place] [address] Radha Mohamud [address] [place] [address] documented as of this encounter Procedures Procedure Name Priority Date/Time Associated Diagnosis Comments US PELVIS TRANSVAGINAL 10/21/2023 12:28 PM EST documented in this encounter Results * US PELVIS TRANSVAGINAL (10/21/2023 12:28 PM EST) Anatomical Region Laterality Modality Other 10/21/2023 12:2 8 PM EST Narrative 10/21/2023 12:30 [place] [address] Ultrasound Report Signed Patient: AYANA BROWN MR#: [id number] : 1970 Acct:[id number] Age/Sex: 53 / F ADM Date: 10/21/23 Loc: NOMS Attending Dr: Radha Mohamud D.O. Ordering Physician: Radha Mohamud D.O. Date of Service: 10/21/23 Procedure(s): US pelvis transvaginal Accession Number(s): [id number] cc: MARTHA NEWMAN ; Radha Mohamud D.O. The [place] [address] Patient Name: AYANA BROWN MRN: [id number] date: 1970 Sex: F Assigned Patient Location: [facility] Current Patient Location: [facility] Accession/Order Number: [id number] Exam Date: 10/21/2023 11:29 Report Date: 10/21/2023 [...] Signed By: 10/21/23 1230 DD/ 1228 TD/TT: Workforce Development Program Director: Procedure Note Radiology, Radiologist, MD - 10/21/2023 [place] [address] Ultrasound Report Signed Patient: JUAN C BROWN#: [id number] : 1970Acct:[id number] Age/Sex: 53 / FADM Date: 10/21/23 Loc: NOMS Attending Dr: Radha Mohamud D.O. Ordering Physician: Radha Mohamud D.O. Date of Service: 10/21/23 Procedure(s): US pelvis transvaginal Accession Number(s): [id number] cc: MARTHA NEWMAN ; Radha Mohamud D.O. The [place] [id number] Patient Name: AYANA BROWN MRN: [id number] date: 1970 Sex: F Assigned Patient Location: [facility] Current Patient Location: [facility] Accession/Order Number: [id number] Exam Date: 10/21/2023 11:29 Report Date: 10/21/2023 [...] M.D. Signed By:10/21/23 1230 DD/ 1228 TD/TT: Workforce Development Program Director: us Radha Cade DO [facility] Final Result documented in this encounter Visit Diagnoses Not on filedocumented in this encounter Care Teams Milking Machine Technician Relationship Specialty Start Date End Date Martha Newman [address] [place] [address] PCP - General Family Medicine 10/10/23 documented as of this encounter
--- OUTSIDE RECORDS SUMMARY | 2025-01-18 15:16 | XMS_ITS | Encounter Summary ---
Author Organization [facility] Address [address] [place] [address] Care Team Providers Care Licensed Practical Vocational Nurse Name Role Phone Salas Page Primary Care Provider [phone] Encounter Details Date Type Department Care Team (Late st Contact Info) Description 11/17/2024 External Result Encounter [facility] External Department Unsolicited Alexandre Oliver, DO [address] [address] Social History Tobacco Use Types Packs/Day Years [...] EDT Office Visit [facility] [address] [facility] [place] [address] Michael Mohamud DO [address] [facility] [place] [address] documented as of this encounter Procedures Procedure Name Priority Date/Time Associated Diagnosis Comments ECG 12-LEAD 11/17/2024 11:27 AM EDT documented in this encounter Results * ECG 12 lead (11/17/2024 11:27 AM EDT) 11/17/2024 11:2 7 AM EDT [facility] 11/18/2024 6:34 AM EDT [address] [address] Electrocardiograph Report Signed Patient: Ayana Potter MR#: [id number] : 1970 Acct:[id number] Age/Sex: 54 / F ADM Date: 11/17/24 Loc: Room: Type: [facility] Attending Dr: Alexandre Oliver DO Ordering Provider: [...] previous ECGs available Confirmed by Bryan Boggs ([id number]) on 11/18/2024 6:34:15 AM Referred By: Electronically Signed By: Bryan Boggs Transcribed By: MUS Signed By Bryan Boggs MD 11/18/24 0634 Procedure Note Art Boggs MD - 11/18/[address] [address] Electrocardiograph Report Signed Patient: Ayana Potter LMR#: [id number] : 1970Acct:[id number] Age/Sex: 54 / FADM Date: 11/17/24 Loc: PS Room:Type: [facility] Attending Dr: Alexandre Oliver DO Ordering Provider: [...] previous ECGs available Confirmed by Bryan Boggs ([id number]) on 11/18/2024 6:34:15 AM Referred By: Electronically Signed By: Bryan Boggs Transcribed By: MUS Signed By Bryan Boggs MD 11/18/24 0634 us Alexandre Oliver DO ECG ORDERABLES Final Res ult [facility] [address] [facility] [place] [address], documented in this encounter Visit Diagnoses Not on filedocumented in this encounter Care Teams Licensed Practical Vocational Nurse Relationship Specialty Start Date End Date Salas Page [address] [place] [address] PCP - General Family Medicine 10/10/23 documented as of this encounter
[2025-01-21 12:09] LABS: Age Gdln ACOG Testing Note (.); HPV Aptima Negative (Negative); IGP, Aptima HPV, rfx 16/18,45 Note (.)
== END 2025-01-18 15:12 | disposition home or self-care (01) ==
LOC: LAB 15:11
PROVIDERS: PCP Family Medicine; Visit Provider Obstetrics & Gynecology
DX: Z01.419 Encounter for gynecological examination (general) (routine) without abnormal findings (principal); N84.1 Polyp of cervix uteri
CPT/HCPCS: 87624; 88175; 88305